=== PATIENT | female | born 1965 | race Caucasian/White ===

== ENCOUNTER 2018-03-19 16:29 | Outpatient (REF) | payer MEDICAID, SELFPAY ==
[2018-03-20 09:39] LABS: Anion Gap 9.2 mmol/L (3-11); BUN 23 mg/dL (7-18); CO2 27.8 mmol/L (21.0-32.0); CREATININE 1.33 mg/dL (0.55-1.02); Calcium 8.5 mg/dL (8.5-10.1); Chloride 104 mmol/L (98-107); Estimated GFR 41.42 (mL/min/1.73m2); Glucose 86 mg/dL (70-100); Potassium 4.5 mmol/L (3.5-5.1); Sodium 141 mmol/L (136-145)
[2018-03-20 09:48] LABS: Vitamin B12 > 2000 pg/mL (193-986)
== END 2018-03-19 16:49 ==
LOC: NCHCN 16:29
PROVIDERS: PCP Family Medicine; Visit Provider Family Medicine
DX: I10 Essential (primary) hypertension (principal); E53.8 Deficiency of other specified B group vitamins
CPT/HCPCS: 80048; 82607

== ENCOUNTER 2018-07-10 00:17 | Outpatient (CLI) | payer MEDICAID, SELFPAY ==
--- NOTE | 2018-07-10 10:28 | DI.MRI_ITS ---
SYMPTOM/DIAGNOSIS: CHRONIC NECK PAIN, M54.2 CERVICAL SPINE MRI: Routine noncontrast examination was performed. There are no priors for comparison. There is normal signal in the spinal cord. No evidence of tonsillar ectopia. At C 7-T 1, there is no focal disc herniation, central spinal canal or neural foraminal stenosis. At C 6-7, there is no central spinal canal stenosis or focal disc herniation. There are degenerative changes of the uncovertebral joints causing mild narrowing of the neural foramen bilaterally. At C 5-6, there is mild prominence of the osteophyte disc complex but no focal disc herniation or central spinal canal stenosis is seen. There are degenerative changes of the uncovertebral joints and facets causing mild bilateral neural foraminal narrowing. At C 4-5, there is prominence of the osteophyte disc complex causing mild narrowing of the central spinal canal. There is CSF seen surrounding the cord. There are degenerative changes of the uncovertebral joints causing mild to moderate bilateral neural foraminal stenosis. At C 3-4, there is no focal disc herniation or central spinal canal stenosis. No significant neural foraminal stenosis is seen. At C 2-3, there is no focal disc herniation, central spinal canal or neural foraminal stenosis. Degenerative endplate signal changes are seen in the bone marrow. Otherwise bone marrow signal is within normal limits. IMPRESSION: Multi level degenerative changes in the cervical spine resulting in central spinal canal and neural foraminal stenosis as described above.
== END 2018-07-10 00:37 ==
PROVIDERS: PCP Family Medicine; Visit Provider Family Medicine
DX: M54.2 Cervicalgia (principal); M50.30 Other cervical disc degeneration, unspecified cervical region; M48.02 Spinal stenosis, cervical region
CPT/HCPCS: 72141

== ENCOUNTER 2018-07-29 12:14 | Day surgery (SDC) | payer MEDICAID, SELFPAY ==
[2018-07-29 12:42] VITALS: BP 149/96; PULSE 86; RESP 16; TEMP 36.1; O2SAT 96
[2018-07-29] MEDS: Lidocaine 2% Pres-Free 5 ML VIAL (15:42)
--- NOTE | 2018-07-29 15:58 | W.PM.DSUDISC ---
Discharge Plan Disposition Patient Disposition: HOME Condition: Good Discharge Details Reason For Visit: TRIGGER LRF Attending Provider: Chandler Sanabria Primary Care Provider: Golden [facility] Meds and New Rx's Prescriptions: New ibuprofen 800 mg tablet 800 mg PO TID Qty: 15 RF: 0 Continued sumatriptan succinate [Imitrex] 25 MG tablet 25 mg PO PRN RF: 0 lisinopril 20 MG tablet 40 mg PO DAILY RF: 0 multivitamin 1 EACH tablet 1 ea PO RF: 0 hydrochlorothiazide 25 MG tablet 25 mg PO DAILY RF: 0 amlodipine 2.5 MG tablet 2.5 mg PO DAILY RF: 0 ergocalciferol (vitamin D2) [Vitamin D2] 50,000 UNITS capsule 50,000 units PO WEEKLY RF: 0 amitriptyline 10 mg Tablet RF: 0 Lyrica 100 mg Capsule BID RF: 0 Discharge Instructions Additional Instructions: Bend and straighten L ring finger 10 times/hour when awake to decrease pain and swelling. Remove dressings, shower or bathe and get incision wet after 48 hours. Leave incision uncovered when it is dry and sealed. Take ibuprofen as prescribed for 5 days. Follow up with in 2 weeks. Referrals: Chandler Sanabria MD [ [facility]] - (f/u in 2 weeks.) Activity:: Activity as Tolerated Remove Dressings/Wound Care:: 48 hours Shower/Bathe:: 48 hours Diet:: As Tolerated Discharge Orders Discharge Orders: Discharge Order (Routine); Ordered 07/29/18 Ordered By: Chandler Sanabria DS: Diagnosis Discharge Diagnosis (1) Trigger ring finger of left hand: Status: Acute
--- NOTE | 2018-07-29 17:32 | ROE_ITS ---
DATE OF PROCEDURE: July 29, 2018 PREOPERATIVE DIAGNOSIS: Trigger left ring finger. POSTOPERATIVE DIAGNOSIS: Same. PROCEDURE: Tendon sheath incision for trigger left ring finger. ANESTHESIA: Local infiltration with 1% Xylocaine solution and 0.5% Marcaine with an epinephrine solu tion. SURGEON: Chandler Sanabria M.D. INDICATIONS: This is a 53-year-old white female with a two month history of painful locking of her l eft ring finger. This has been interfering with her activities of daily living, as well as her work. She is now waking up in the morning with her finger stuck in flexion. It's very painful. Tendon s lore incision for trigger finger release was recommended to alleviate her pain and restore useful fl exion of her left ring finger. The risks and complications of the procedure were discussed with the patient in detail preoperatively. PROCEDURE: The patient was taken to the Operating Room on 07/29/18. She was placed supine on the ope rating table. The left hand was prepped and draped free in the usual sterile fashion. I infiltrated over the flexor sheath of the left ring finger with 1% Xylocaine solution. I make and incision para llel to the distal palmar flexion crease and 5 mm distal to where it centered over the flexor sheath of the left ring finger. The incision was about 2 cm in length. The incision was carried down to th e subcu. Blunt-tipped Littler scissors were then used to mobilize the soft tissues away from the fle xor sheath. Retractors were inserted. Under direct vision I incised the flexor sheath longitudinall y in the midline. I used Littler scissors to extend the incision of the proximal shellie proximally a nd distally until the entire proximal shellie is released. The patient was then asked to actively fle x and extend her left ring finger. She was able to flex and extend her left ring finger fully withou t any locking or catching. The wound was irrigated with saline solution. The wound margins were inf iltrated with 0.5% Marcaine with an epinephrine solution. The skin edges were approximated with thre e interrupted #4-0 Nylon sutures. The wound was dressed with Xeroform gauze, sterile gauze 4x4's and wrapped with a 2-inch Cling bandage for a light pressure dressing. The patient tolerated the proced ure well and was discharged to the Day Surgery Unit in good condition. The patient was discharged home from the Day Surgery Unit with instructions to bend and straighten he r left ring finger ten times an hour while awake to prevent swelling and pain. She will take ibuprof en 800 mg p.o. t.i.d. p.r.n. for pain. She is to keep the dressings intact for 48 hours. After 48 h ours she can remove her dressings, shower or bathe and get her incision wet. She can leave the incis ion uncovered when it is dry and sealed. She will follow-up with me in two weeks for suture removal.
== END 2018-07-29 16:21 | disposition home or self-care (01) ==
PROVIDERS: PCP Family Medicine; Visit Provider Orthopaedic Surgery
PROC: (CPT 26055; principal; 2018-07-29 13:30)
DX: M65.342 Trigger finger, left ring finger (principal)
CPT/HCPCS: 26055

== ENCOUNTER 2018-08-02 16:10 | Outpatient (REF) | payer MEDICAID, SELFPAY ==
[2018-08-02 21:09] LABS: Anion Gap 7.7 mmol/L (3-11); BUN 20 mg/dL (7-18); CO2 27.3 mmol/L (21.0-32.0); CREATININE 0.78 mg/dL (0.55-1.02); Calcium 8.7 mg/dL (8.5-10.1); Chloride 106 mmol/L (98-107); Glucose 104 mg/dL (70-100); Potassium 3.7 mmol/L (3.5-5.1); Sodium 141 mmol/L (136-145)
== END 2018-08-02 16:30 ==
LOC: NCHCN 16:10
PROVIDERS: PCP Family Medicine; Visit Provider Family Medicine
DX: N28.89 Other specified disorders of kidney and ureter (principal)
CPT/HCPCS: 80048

== ENCOUNTER 2018-08-22 00:19 | Outpatient (CLI) | payer MEDICAID, SELFPAY ==
--- NOTE | 2018-08-22 15:57 | DI.MAMMO_ITS ---
SYMPTOM/DIAGNOSIS: SCREENING, Z12.31, PREVENTATIVE HEALTH CARE, Z00.00, FAMILY H/O BREAST CA MAMMOGRAMS: Mammograms were interpreted according to the usual protocol including computer analysis with CAD system, tomosynthesis and C view imaging. The breasts are of moderate density with fairly symmetrical distribution of fibroglandular tissue. No dominant mass or clumped microcalcification is identified in either breast. No previous films available for comparison. CONCLUSION: No specific evidence of malignancy at this time. Routine screening examinations are suggested at yearly intervals due to the family history of breast carcinoma. Category 1. Breast density, Category B. MQSA ASSESSMENT OF FINDINGS: Negative. Category 1. Patient will receive a letter notifying them of these results. BI-RADS category B. There are scattered areas of fibroglandular density.
== END 2018-08-22 00:39 ==
PROVIDERS: PCP Family Medicine; Visit Provider Family Medicine
DX: Z12.31 Encounter for screening mammogram for malignant neoplasm of breast (principal); Z80.3 Family history of malignant neoplasm of breast
CPT/HCPCS: 77063; 77067

== ENCOUNTER 2019-03-03 15:50 | Outpatient (CLI) | payer SELFPAY ==
--- NOTE | 2019-03-03 15:50 | DI.RAD_ITS ---
EXAM: XR HIP LT COMPLETE AP PELVIS INDICATION: HIP PAIN LT, M25.552. COMPARISON: LEFT HIP COMPLETE from 08/10/2008 TECHNIQUE: 2D digital imaging was performed. FINDINGS: The bony structures are normally mineralized. The hip joint appears intact. There are minimal periart icular hypertrophic changes. Minimal DJD is demonstrated.
== END 2019-03-03 16:10 ==
PROVIDERS: PCP Family Medicine; Visit Provider Family Medicine
DX: M25.552 Pain in left hip (principal); M16.12 Unilateral primary osteoarthritis, left hip
CPT/HCPCS: 73502

== ENCOUNTER 2019-07-25 11:22 | Outpatient (CLI) | payer OTHER, SELFPAY ==
--- NOTE | 2019-07-25 11:15 | DI.RAD_ITS ---
EXAM: XR HIP LT AP LAT ONLY CLINICAL HISTORY: eval L hip pain. TECHNIQUE: 2D digital imaging was performed. COMPARISON: XR HIP LT COMPLETE AP PELVIS from 03/03/2019 FINDINGS: BONES: No acute fracture is present. No bony destructive lesion is seen. There is again seen a subcho ndral cyst in the superior acetabulum. JOINTS: No dislocation present. Left hip appears stable. SOFT TISSUE: Normal. IMPRESSION: Stable changes of the left hip. DATA REPOSITORY: RADIATION DOSE DELIVERED:
== END 2019-07-25 11:42 ==
PROVIDERS: PCP Family Medicine; Visit Provider Student in an Organized Health Care Education/Training Program
DX: M25.552 Pain in left hip (principal); M89.4 Other hypertrophic osteoarthropathy
CPT/HCPCS: 73502

== ENCOUNTER 2019-08-07 07:40 | Outpatient (CLI) | payer OTHER, SELFPAY ==
--- NOTE | 2019-08-07 08:15 | DI.MRI_ITS ---
EXAM: MR LOWER JOINT LT WO CLINICAL HISTORY: lt hip pain, m25.552. TECHNIQUE: Multiplanar multisequence MRI was performed. COMPARISON: No exams were available for comparison FINDINGS: Bones: In the articular surface of the left femoral head, there is decreased signal on the T1 and inc reased signal on the T2 weighted images. Similar marrow signal changes are noted in the articular antione face of the left acetabulum. Subchondral cysts are also seen in the superior acetabulum. No linear hy perintense signals are seen in the subcortical bone of the femoral head. Joint space: There is a moderate left joint effusion. There is hyperintense signal seen in the articu lar cartilage. Tendons: There is hyperintense signal on the T2 weighted images within the rectus femoris tendon, its insertion site at the anterior inferior left iliac spine. Hyperintense signal seen in the surroundin g soft tissues. The muscle shows normal signal and size. Ligaments: There is thickening and hyperintense signal seen in the distal left capsular ligament at i ts attachment to the greater trochanter. Soft tissues: No fluid collection or soft tissue mass is appreciated. Labrum: Grossly unremarkable on this noncontrast examination. IMPRESSION: 1. Abnormal signal seen within the marrow of the articular surfaces of the femoral head and acetabulu m. Subchondral cysts. Hyperintense signal in the articular cartilage. 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 Differential considerations include early AVN, inflammatory osteoarthritis ortiz ges, marrow edema syndrome, or transient osteoporosis of the hip. 2. Moderate joint effusion. 3. Hyperintense signal seen within the left rectus femoris tendon at its insertion site onto the ante rior inferior iliac spine. The finding is suspicious for tendon tear. 4. Thickening and hyperintense signal in the distal left capsular ligament. Tear or sprain cannot be excluded. DATA REPOSITORY:
== END 2019-08-07 08:00 ==
PROVIDERS: PCP Family Medicine; Visit Provider Student in an Organized Health Care Education/Training Program
DX: M25.552 Pain in left hip (principal); M25.452 Effusion, left hip; M16.12 Unilateral primary osteoarthritis, left hip; M62.89 Other specified disorders of muscle
CPT/HCPCS: 73721

== ENCOUNTER 2019-09-01 13:52 | Outpatient (CLI) | payer OTHER, MEDICAID, SELFPAY ==
--- NOTE | 2019-09-01 13:45 | DI.RAD_ITS ---
EXAM: XR PELVIS AP CLINICAL HISTORY: preoperative planning; left MARIEL TECHNIQUE: 2D digital imaging was performed. COMPARISON: XR HIP LT COMPLETE AP PELVIS from 03/03/2019 XR HIP LT AP LAT ONLY from 07/25/2019 FINDINGS: There is moderate narrowing of the superior left hip joint space. This appears increased when compar ed with the previous exam which could be secondary to weight-bearing. A subchondral cyst is again no pablo in the superior acetabulum which appears unchanged. The right hip joint space is well maintained .. IMPRESSION: Increase in superior joint space narrowing the left hip.
== END 2019-09-01 14:12 ==
PROVIDERS: PCP Family Medicine; Visit Provider Physician Assistant
DX: M25.552 Pain in left hip (principal); M16.12 Unilateral primary osteoarthritis, left hip; M85.68 Other cyst of bone, other site
CPT/HCPCS: 72170

== ENCOUNTER → 2019-09-10 03:45 | Outpatient (CLI) | payer OTHER, MEDICAID, SELFPAY ==
[2019-09-10 09:43] LABS: HCT 43.3 % (36.0-46.0); HGB 13.9 g/dL (12.0-15.5); Mean Corp. HGB Concentration 32.1 g/dL (32.0-36.0); Mean Corpuscular Hemoglobin 28.5 pg (27.0-33.0); Mean Corpuscular Volume 88.9 fL (80-95); Mean Platelet Volume 9.2 fL (8.0-11.0); Platelet Count 364 x1000/uL (130-400); RBC 4.87 m/cumm (4.00-5.20); RBC Distribution Width 14.4 % (11.7-14.6); White Blood Cell Count 5.77 k/cumm (4.4-10.8)
[2019-09-10 10:53] LABS: Anion Gap 5.6 mmol/L (3-11); BUN 14 mg/dL (7-18); CO2 31.4 mmol/L (21.0-32.0); CREATININE 0.66 mg/dL (0.55-1.02); Calcium 9.2 mg/dL (8.5-10.1); Chloride 100 mmol/L (98-107); Glucose 74 mg/dL (74-106); Sodium 137 mmol/L (136-145)
[2019-09-11 18:51] LABS: COVID-19 RT-PCR UVMMC Result Negative (Negative)
== END ==
PROVIDERS: PCP Family Medicine; Visit Provider Student in an Organized Health Care Education/Training Program
DX: M25.552 Pain in left hip (principal); M87.852 Other osteonecrosis, left femur; Z11.59 Encounter for screening for other viral diseases; Z01.818 Encounter for other preprocedural examination; Z01.812 Encounter for preprocedural laboratory examination
CPT/HCPCS: 36415; 80048; 85027; 86850; 86900; 86901; U0003

== ENCOUNTER 2019-09-16 06:13 | Observation (INO) | payer MEDICAID, SELFPAY ==
[2019-09-16] VITALS (11 sets, daily range): BP systolic 73–138; BP diastolic 35–104; PULSE 52–77; RESP 15–20; TEMP 35.1–36.7; O2SAT 95–100
--- NOTE | 2019-09-16 06:45 | DI.RAD_ITS ---
EXAM: XR HIP LT IN OR CLINICAL HISTORY: Osteonecrosis of left hip, left hip pain. TECHNIQUE: 2D and realtime digital imaging was performed. Fluoro time: 35.2 sec, 5.11 mGy COMPARISON: XR PELVIS AP from 09/01/2019 FINDINGS: Fluoroscopy was provided in the OR. Hard copy images show placement of a left total hip prosthesis. The alignment appears satisfactory. RADIATION DOSE DELIVERED:
[2019-09-16] MEDS: Celecoxib 200 MG CAP 400 MG PO (06:48)
[2019-09-16] MEDS: Acetaminophen 500 MG TAB 1000 MG PO ×3 (06:49→19:37)
[2019-09-16] MEDS: Lactated Ringers 1,000 ML 80 ML IV ×3 (07:19→13:09)
[2019-09-16] MEDS: ceFAZolin 2 GM/50 ML BAG IVPB (08:22)
[2019-09-16] MEDS: Ketorolac 30 MG/ML VIAL (10:00)
[2019-09-16] MEDS: Bupivacaine 0.25% Pres-Free 30 ML VIAL (10:01)
--- NOTE | 2019-09-16 10:35 | W.PM.OP ---
Date of service: 09/16/19 Time of Service: 10:35 Operative Note Operative Note DATE OF PROCEDURE: 09/16/19 PRE-OP DIAGNOSIS: Left Hip osteonecrosis POST-OP DIAGNOSIS: same PROCEDURE: Left Anterior Total Hip Arthroplasty SURGEON: Keith Verma [employer] TEAM MEMBER: nAa Pineda ANESTHESIA: GETA ESTIMATED BLOOD LOSS: 450 PATHOLOGY: none sent COMPLICATIONS: None Patient was transported to: PACU Patient's condition: stable Implants: 1. Depuy [place] Acetabular Component, 54 mm 2. Depuy Acetabular Liner, 54 x 36 mm 3. Depuy Corail [Standard Collared] Femoral Stem, Size 14 4. Depuy [Altrx Ceramic Femoral Head], Size 36+5 mm Indications: I have seen Socorro in clinic for symptoms of hip osteonecrosis, confirmed with radiographic findings. Socorro has exhausted nonoperative methods and was having significant limitations in daily function and desired better function and less pain. I discussed the technical details of a hip replacement. I explained the risks of the procedure to include, but not limited to, bleeding, infection, pain, stiffness, fracture, damage to nerves and vessels, damage to muscles and tendons, loosening, instability, leg length inequality, need for repeat procedure, blood clot and cardiopulmonary demise. Despite these risks, [NAME] elected to proceed. Findings: There was a large osteonecrotic region of the superior femoral head which was easily penetrated with a freer edge. The overlying cartilage was mobile. Procedure Description: Socorro was greeted in the preoperative holding area where the correct side was identified and marked. The consent was reviewed with the patient and signed. The history and physical was updated. All questions were answered. She was taken back to the operating room. A spinal anesthestic was then administered. The patient was placed into the supine position on the operating room table. The patient was then positioned onto the ARCH table. Both feet were wrapped with [place] cotton wrap along with Coban. The feet were placed in specialized boots for the ARCH table, well seated within the boot and secured. SCDs were applied. The patient was then slid down onto a peroneal post and the nonoperative leg was secured in a leg randolph attached to the table. The operative side was placed into the ARCH table attachment and bed height and positioning was secured. At this time, Vivian reported still having some sensation in the legs. A test of pain and temperature was performed which demonstrated an area over the anterior hip which was still sensate. Therefore, she was converted to a general anesthetic. A preoperative AP pelvis was obtained to serve as a reference for determining leg lengths. Prophylactic antibiotics in the form of cefazolin were administered. 1g of Tranxemic Acid was given intravenously within 30 minutes of incision. The left leg was then prepped with Chloraprep and draped in a standard fashion. A second prep was performed prior to placing the final shower-curtain type drape with Iodine impregnated skin protection. A timeout to confirm correct identity, side and site, procedure, allergies, anesthesia, and medical concerns was performed. An obliquely oriented incision was made starting lateral to the ASIS and running distal over the Tensor Fascia Betty (TFL) muscle belly toward the fibular head, approximately 10cm. The skin and soft tissue was dissected sharply, through Ousmane?s fascia, and to the fascia of the TFL. With the fascia and superior border of the IT band identified, the fascia was incised with a new knife just above any perforators from the IT band. The TFL muscle belly was bluntly dissected away from the fascia and moved laterally. The fat between TFL and rectus was identified to ensure the dissection was not within the TFL. Blunt dissection created space between abductors and the capsule and retractor was placed over the lateral femoral neck. The fibers of the rectus femoris tendon were identified and these were freed from the anterior capsule. A second cobra retractor was placed around the medial femoral neck. The TFL was further retracted laterally to show the deep fascia. Careful dissection through this layer identified three main crossing vessels of the lateral femoral circumflex. These were cauterized in multiple locations and then cut without any noticeable bleeding. The TFL was further released bluntly from the deep fascia to expose anterior hip capsule and fat The Gio orthopaedic retractor was then placed beneath the TFL and against sartorius and medial soft tissues to protect and retract the soft tissues. A T-capsulotomy was then performed starting at the superior lateral acetabulum and moving distally to the intertrochanteric ridge. These capsular flaps were tagged with a No. 1 Ethibond and elevated from within. The capsular flaps were released to the shoulder of the lateral neck and to the lesser trochanter to give excellent visualization of the proximal femur. A neck osteotomy was performed using an oscillating saw based on preoperative templates. This cut started in the shoulder and of the lateral neck and exited medially. The saw was at all times directed medially to avoid injury to the greater trochanter. 6cm of traction was applied to the leg and the osteotomy opened. The femoral head was removed with a corkscrew, making sure to protect the TFL on its exit. This was measured on the back table to determing the starting reamer size. There is a large osteonecrotic region of the superior aspect of the femoral head which was easily penetrable with a [place] elevator and had overlying cartilage which was mobile. Portions of the rectus obscuring visualization were minimally elevated off the superior acetabulum. An anterior retractor was placed over the anterior wall between capsule and labrum and held with the Gripper retraction system. A posterior retractor was placed similarly. This provided excellent visualization. The contents of the cotyloid fossa were removed with electrocautery and the labrum was removed with a knife. Acetabular reaming began with a 50 mm reamer. This first reaming was directed anterior to posterior and medial to get down to the true floor. This was inspected and reamed until the true floor was reached. I then reamed sequentially up to a 53 mm reamer where good fit was obtained. The larger reamers were oriented based on anatomical reference of the anterior and lateral steiner to ensure proper abduction and anteversion. Positioning and size was confirmed with the fluoroscopy. A 54 mm Depuy [place] acetabular component was selected. The acetabulum was reamed around the periphery with the selected acetabular size to prevent a rim fit. The deep tissues were irrigated. The acetabular component was then impacted in a position of about 40-45 degrees of abduction and 15-20 degrees of anteversion, using the patient?s anatomy as the ultimate landmark. Fluoroscopy was used to confirm this. There was excellent chief clinical officer of the acetabular component and the inserting handle was removed. A primary acetabular screw was placed into the ilium by drilling through one of the holes in the acetabular component. This was measured and an approrpriately sized screw was placed with excellent purchase. It was checked not to be proud. A second screw was placed in a similar fashion. The acetabular liner, Depuy 54 x 36 mm polyethylene liner, was inserted and lined up with the tines of the acetabular component. There was no soft tissue interposition. The liner was then impacted into position and confirmed to be well-seated. A portion of the [place]-articular cocktail was then injected around the acetabulum into the capsule and periosteum. This cocktail consisted of 50cc of 0.25% Bupivicaine and 20cc of Exparel, expanded to a total of 120cc. Traction was released from the femur. The leg was rotated to 120 degrees. Any remaining medial capsule was released until the lesser trochanter was easily palpable. A Bowden retractor was placed medially. The lateral capsule was further released into the shoulder to allow access to the greater trochanter. A Bowden retractor was placed over the greater trochanter which allowed the trochanter to flip in front of the capsule for excellent exposure. The leg was brought down into maximal extension and 20 degrees of adduction while ensuring there was no impingement on the acetabulum. Any remnant capsule within the trochanter was released. Piriformis and obturator externis were identified and protected. There was excellent access to the proximal femur. The lateral neck remnant was removed with a rongeur. A blunt canal probe was used to identify the canal and trajectory for later broaching. A box osteotome initiated the broach course. A small curved rasp and a curved curette were used to work laterally. Broaching then began with a size 8 Corail broach. This was inserted manually around the trochanter and into the canal before mallet blows. The broach was seated to a few millimeters below the cut level based on the neck cut and the preoperative template. Sequential broaching was continued with the QuickM[employer] pneumatic broaching device until a tight fit was obtained with good rotational control of the femur. A trial standard neck was inserted along with a +1.5 trial head. The leg was brought out of extension and adduction and then reduced with traction and internal rotation. The leg was stable anteriorly in a position of 30 degrees of extension and 90 degrees of external rotation. Fluoroscopy was used to ensure there was no fracture and the stem was seated well. Leg lengths were checked with an AP pelvis and pelvic reference points utilizing the joint point navigation system. This showed that we were 2 mm shorter and less on offset, so I decided to go up to a +5 head. Once content with the desired offset and leg lengths, the leg was brought back into extension, external rotation and adduction. The periosteum and surrounding tissue was injected with remaining portion of the [place]ina-articular cocktail. The proximal femur was irrigated as well as the deep tissues. The Depuy Corail standard collared stem, size 14, was then manually inserted into the proximal femur making sure to control rotation. It was then malleted into position with light blows, giving breaks to allow bone expansion and decrease risk of fracture. The selected Depuy Altrx Ceramic Head, size 36+5 mm, was then placed onto the clean and dry trunnion and secured with impaction onto the tapered fit. The leg was brought back out of extension and adduction and reduced with traction and internal rotation. Stability was confirmed with no shuck at 90 degrees of external rotation and 30 degrees of extension. No impingement through range of motion arc. Final x-ray images were obtained with fluoroscopy to confirm adequate positioning and no intraoperative fracture. The deep tissues were thoroughly irrigated with Irrisept chlorhexadine solution. The second dose of TXA 1g was administered intravenously. The capsule was then reapproximated with the previously placed Ethibond sutures. The TFL fascia was finally closed with a No. 2 Stratafix, barbed suture. Deep tissues were then reapproximated with 0 Vicryl and a running 2-0 Vicryl. The skin was closed with a running 4-0 Monocryl in a subcuticular fashion. This was reinforced with skin glue. A Mepilex silver dressing was applied. At the end of the case, all counts were correct. Socorro was transferred to the hospital bed without difficulty and suffering no apparent complication. Socorro has a good prognosis. Physical therapy will start today and without restrictions, weight-bearing as tolerated. Aspirin 81mg BID will be used for DVT prophylaxis.
--- NOTE | 2019-09-16 12:24 | NUR.NOTE ---
Nursing Note: 1202: pt arrives to room 225 via stretcher from PACU. pt alert/oriented but sleepy. pt has patent IV with LR, patent gallardo draining clear yellow urine. VS WNL for pt at this time per PACU. pt pain is 4/10 at this time. ice pack to Left hip area, mepilex dressing intact. pt has +pp's and good movement in toes bilaterally. pt has TEDS and SCDs in place. pt hr is regular but diana, LS clear anteriorly, + bowel sounds at this time. pt oriented to call greene system. natasha at the bedside. continue to monitor.
[2019-09-16] MEDS: HYDROmorphone 2 MG/ML VIAL 0.5 MG IVP (13:08)
--- NOTE | 2019-09-16 14:28 | PT.INIE ---
Date of service: 09/16/19 Time of Service: 15:00 PT Notes Inpatient Physical Therapy Evaluation Date: September 16, 2019 Referring Doctor: Keith Verma PT Orders: PT CONSULT: s/p L MARIEL Precautions: Standard, WBAT L LE Patient Profile/Admitting Diagnosis: Socorro is a 54 year old female s/p Left MARIEL due to multiple month history of debilitating pain. PMHX: Arthritis of left shoulder region (Chronic) Carpal tunnel syndrome, left (Acute) DDD (degenerative disc disease), cervical (Chronic) Depression, major, single episode, severe (Acute) Fatigue (Acute) Fibromyalgia (Chronic) GERD (gastroesophageal reflux disease) HTN (hypertension) Hx of bariatric surgery Migraine (Chronic) Obesity Osteoarthritis of knees, bilateral (Chronic) Peripheral neuropathy (Chronic) Pernicious anemia (Acute) Pruritus (Acute) Renal insufficiency (Chronic) Restless legs (Acute) Sacroiliac joint pain (Acute) Seborrheic dermatitis of scalp (Chronic) Trigger finger, left ring finger (Acute) Vitamin B 12 deficiency (Chronic) Vitamin D deficiency (Acute) Surgical History Colonoscopy - MAC (06/29/17) H/O shoulder surgery (Chronic) Left History of cholecystectomy (Chronic) History of knee replacement (Chronic) Hx laparoscopic cholecystectomy (Acute) Hx of BSO (bilateral salpingo-oophorectomy) (Acute) S/P ABEBE (total abdominal hysterectomy) (Acute) Social History/Home Situation: Socorro lives with her boyfriend in a 2 story home. She notes that she does have a recliner that she can sleep in if needed on the first floor until she feels confident with the stairs. She notes that her shower is also on the second story however does have a bathroom on the first floor. She is worried about the low toilet seats and does not want to fall. She has utilized a walker in the past due to previous knee surgery. She was most previously employed via [employer] however gave her notice due to her hip pain. Her last day of work was the 31 of August. Current Functional Limitations: WBAT L LE Equipment Owned/DME: None Subjective: Socorro notes that she is getting more sensation back into her legs, her bottom still feels a little funny. She notes that her pain is a 5/10. She was recently given pain medication via nursing. She is hopeful to go home in the morning however does not quite feel ready tonight. Objective: General Observation: IV L UE, Fabian catheter Mental Status: Alert and oriented x4 Pain: 5/10 L hip Vital Signs: BP 125/81 mmHg; HR 63 bpm ROM: Right Upper Extremity: Demonstrates full active Right UE ROM Left Upper Extremity: Demonstrates full active Left UE ROM Right Lower Extremity: Demonstrates WNL right LE ROM Left Lower Extremity: Hip flexion tolerable to 90 degrees, abduction 30 degrees, knee flexion/extension WNL, ankle DF/PF WNL Strength: Right Upper Extremity: Demonstrates 5/5 Right UE strength Left Upper Extremity: Demonstrates 5/5 Left UE strength Right Lower Extremity: Demonstrates 5/5 right LE strength Left Lower Extremity: Unable to lift her left leg I with SLR. Knee flexion 4/5 with pain, knee extension 4/5 with pain, DF/PF 4-/5 Sensation: Intact light touch bilateral LE. Bed Mobility/Transfers: Supine-sit: HOB 30 degrees, Supervision Sit-supine: HOB flat, min A of LE's Sit-stand: Supervision with FWW Stand-sit: Supervision Bed-Bed: Supervision with FWW Gait: FWW, WBAT L LE, 25 ft CGA with complaints of light headedness and left hip pain. Patient notes that she does not feel that she is putting her full weight down on the Left at this time. Balance: Static Sitting: Normal Dynamic Sitting: Normal Static Standing: Good Dynamic Standing: Fair Special Tests: Mobility Limitations Standardized Measure [facility] AM-PAC 6 clicks Basic Mobility Inpatient Short Form: Raw Score: 19 CMS Score: 41.77 % Informed Consent/Education: Patient instructed in purpose of PT consult and plan of care. Assessment: Patient is a 54 year old female referred to physical therapy services with the diagnosis of s/p left MARIEL. Patient presents with clinical signs and symptoms consistent with diagnosis. Presents with impaired joint mobility of the left hip, impaired muscle performance and motor function s/p left MARIEL. Required CGA with ambulation and use of FWW. Anticipate discharge home tomorrow morning. Will see patient first thing in AM to promote functional mobility, stair negotiation, and all transfers to ensure safety home. Patient is assessed as a Low 66768 complexity based on the following: History: As above Examination: As above Presentation: Stable Decision Making: Low Goals: Goals X1 week 1. Supine-Sit I 2. Sit-Supine I 3. Sit-Stand I 4. Stand-Sit I 5. Bed-Chair I, FWW 6. Chair-Bed I, FWW 7. Gait I, FWW 100ft or greater 8. Stairs ascend/descend 5 steps with use of railing, I 9. Independent with home exercise program I 10. Demonstrate improved dynamic standing balance to good Plan of Care/Treatment Plan: 1-2x/day, 7 days/week x 1 week. Plan of care has been reviewed with the STAFF NUCLEAR MEDICINE TECHNOLOGIST providing the service under Physical Therapy direction. Initiate Physical Therapy intervention for strengthening, bed mobility, transfers, gait, stairs, balance training, use of assistive device. DISCHARGE RECOMMENDATIONS: Home with use of FWW per MD order TREATMENT CODE/TIME: 22117, 30 minutes, 15:00 PM DIVINA Herrera [facility]
--- NOTE | 2019-09-16 14:45 | W.PM.DS.N ---
Date of service: 09/17/19 Time of Service: 07:28 DS: Diagnosis Discharge Diagnosis (1) Osteonecrosis of left hip: Status: Acute Discharge Plan Disposition Patient Disposition: HOME Condition: Good Discharge Details Reason For Visit: L Anterior MARIEL Admit Date/Time: 09/16/19 06:13 Admit Provider: Keith Verma Attending Provider: Keith Verma [facility] Hospital Course: Patient was admitted to the medical/surgical floor following the procedure. It was tolerated well without any notable medical, surgical, or anesthetic complications. Mobilization began postoperatively. The gallardo catheter was removed and voiding spontaneously. Vitals were stable. Physical therapy worked with the patient and was cleared for discharge home. No acute medical issues. Home Meds and New Rx's Prescriptions: New celecoxib 200 mg capsule 200 mg PO BID PRN (Reason: pain) Qty: 60 RF: 1 aspirin 81 mg tablet,delayed release (DR/EC) 81 mg PO BID Qty: 60 RF: 0 acetaminophen 500 mg tablet 1,000 mg PO Q8H PRN (Reason: pain) Qty: 90 RF: 3 hydromorphone 2 mg tablet 2 mg PO Q4H PRN (Reason: pain) Qty: 18 RF: 0 Continued amitriptyline 25 mg tablet 25 mg PO QHS RF: 0 cyanocobalamin (vitamin B-12) 1,000 mcg/mL kit 1,000 mcg IM QMONTH RF: 0 chlorthalidone 25 mg tablet 25 mg PO DAILY RF: 0 cyclobenzaprine 10 mg tablet 10 mg PO HS RF: 0 amlodipine 10 mg tablet 10 mg PO DAILY RF: 0 Zyrtec 10 mg capsule 10 mg PO DAILY PRNRF: 0 citalopram 40 mg tablet 40 mg PO DAILY RF: 0 cholecalciferol (vitamin D3) 1,000 unit capsule 1,000 unit PO DAILY RF: 0 sumatriptan succinate [Imitrex] 25 MG tablet 25 mg PO PRN RF: 0 lisinopril 20 MG tablet 40 mg PO DAILY RF: 0 multivitamin 1 EACH tablet 1 ea PO RF: 0 omeprazole 20 mg capsule,delayed release(DR/EC) 20 mg PO DAILY Qty: 30 RF: 3 hydrochlorothiazide 25 MG tablet 25 mg PO DAILY RF: 0 Discontinued prednisone 5 mg tablet 5 mg PO DAILY Qty: 30 RF: 0 tramadol 50 mg tablet 50 mg PO Q8H PRN (Reason: pain) Qty: 21 RF: 0 ibuprofen 600 mg tablet 600 mg PO Q8H PRN (Reason: pain) Qty: 90 RF: 0 Discharge Instructions Additional Instructions: Dr. Verma?s Total Hip Discharge Instructions Activity: The most important activity is to walk. You should try to take short walks a few times a day. You have no restrictions on movement or positioning, but do not try to force what you do. You will find some stiffness and weakness with hip flexion (lifting your knee). Do not try to strengthen this too early, continue to practice walking and stairs and this will come. - Outpatient physical therapy can be helpful to help return you to a normal gait and improve your flexibility and strength. This can start around 2 weeks. For some patients, it?s not necessary. Usually this is determined at the time of discharge or at the first post-operative visit. - You should wear the JAMMIE hose on both legs for 2 weeks. Dressing: Keep the surgical dressing in place for at least one week. After the first week it may be removed and replace with light gauze and tape or nothing. It may get wet after 3 days but avoid soaking the dressing. If it gets wet, just lightly pat dry. It is important to always keep some gauze between skin folds, especially when you are sitting. Spend some time with the wound exposed when you are lying flat as the incision does wrinkle onto itself. Medications: - You should take Tylenol and an anti-inflammatory Celebrex as your primary pain control medications - You have been prescribed a stronger pain medication Oxycodone for breakthrough pain, take as needed as prescribed. - You should continue to take your stomach acid reduction agent Omeprazole to help reduce stomach acid and reflux. - You will be taking Aspirin 81mg twice a day for DVT prevention unless instructed otherwise. - If you have constipation you should take Colace or Miralax (both [id number]). It takes most people 3-4 days to have a bowel movement. Follow-up: 2 weeks Referrals: Keith Verma MD [ [facility] STAFF PHYSICIAN] - Activity:: Activity as Tolerated Equipment/Supplies:: Walker Diet:: As Tolerated Discharge Orders Discharge Orders: Discharge Order (Routine); Ordered 09/17/19 Ordered By: Keith Verma DS: Summary Status at Discharge Functional status at discharge: uses cane/walker Overall status at discharge: patient is progressing back to baseline Mental Status: mental status grossly normal Speech and Movement: speech and movement normal Mood: congruent mood Affect: normal affect Exam Narrative Exam Narrative: Left hip dressing is clean dry and intact. Minimal ecchymosis. Tenderness over the greater trochanter and the posterior soft tissues and musculature of the hip. Excellent range of motion with about 30 degrees of internal rotation and 45 degrees of external rotation with no pain. She is able demonstrate active hip flexion. Sensation intact light touch of the femoral nerve and sciatic nerve distributions. The foot is warm and well-perfused. Psych Mental Status: mental status grossly normal Speech and Movement: speech and movement normal Mood: congruent mood Affect: normal affect DS: Data Vitals/I&O Vitals and I&O: Vital Signs Temperature 35.1 C L 09/16/19 12:10 Temperature Source Temporal Artery Scan 09/16/19 12:10 Pulse 65 09/16/19 12:10 Pulse Rhythm Regular 09/16/19 06:32 Respiratory Rate 18 09/16/19 12:10 Respiratory Effort Non-Labored 09/16/19 06:32 Respiratory Depth Normal 09/16/19 06:32 Respiratory Pattern Normal 09/16/19 06:32 Blood Pressure 126/84 09/16/19 12:10 Pulse Oximetry 99 09/16/19 12:10 Respiratory End-tidal CO2 36 09/16/19 11:40 Oxygen Delivery Method Room Air 09/16/19 12:10 Oxygen Flow Rate 0 09/16/19 12:10 Pain Level 4 09/16/19 14:08 Intake & Output 09/15/19 09/16/19 09/16/19 23:59 11:59 23:59 Intake Total 1753.333 / 2104.000 350.667 / 2104.000 Output Total 750 / 750 Balance 1003.333 / 1354.000 350.667 / 1354.000 Weight 95.5 kg Intake: IV 1753.333 / 1864.000 110.667 / 1864.000 Oral 240 / 240 Output: Urine 300 / 300 Estimated Blood Loss 450 / 450 Other: Urine Color Yellow Urine Appearance Clear Emesis Description None [facility] Medical History Arthritis of left shoulder region (Chronic) Carpal tunnel syndrome, left (Acute) DDD (degenerative disc disease), cervical (Chronic) Depression, major, single episode, severe (Acute) Fatigue (Acute) Fibromyalgia (Chronic) GERD (gastroesophageal reflux disease) HTN (hypertension) Migraine (Chronic) Obesity Osteoarthritis of knees, bilateral (Chronic) Peripheral neuropathy (Chronic) Pernicious anemia (Acute) Pruritus (Acute) Renal insufficiency (Chronic) Restless legs (Acute) Sacroiliac joint pain (Acute) Seborrheic dermatitis of scalp (Chronic) Trigger finger, left ring finger (Acute) Vitamin B 12 deficiency (Chronic) Vitamin D deficiency (Acute) Surgical History Colonoscopy - MAC (06/29/17) H/O shoulder surgery (Chronic) Left History of (Chronic) History of knee replacement (Chronic) Left and revision ~2004 Right - early History of right knee joint replacement (Acute) Hx laparoscopic cholecystectomy (Acute) Hx of bariatric surgery (~1998) States injury to spleen required drain Hx of BSO (bilateral salpingo-oophorectomy) (Acute) S/P ABEBE (total abdominal hysterectomy) (Acute) Family History Grandfather Colon cancer Social History Smoking/Tobacco Use Status: Never 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 Drug use: Never
[2019-09-16] MEDS: ceFAZolin 1 GM/50 ML BAG IVPB ×2 (14:51→21:32)
[2019-09-16] MEDS: HYDROmorphone 2 MG TAB PO (14:51)
[2019-09-16] MEDS: Celecoxib 200 MG CAP PO (19:38)
[2019-09-16] MEDS: Aspirin E.C. 81 MG TABEC PO (19:38)
[2019-09-16] MEDS: Amitriptyline 25 MG TAB PO (21:32)
[2019-09-16] MEDS: Cyclobenzaprine 10 MG TAB PO (21:32)
[2019-09-17 00:03] VITALS: BP 144/91; PULSE 69; RESP 20; TEMP 36.6; O2SAT 98
[2019-09-17] MEDS: HYDROmorphone 2 MG TAB PO ×3 (00:32→08:37)
[2019-09-17] MEDS: Lactated Ringers 1,000 ML 80 ML IV (03:45)
[2019-09-17 03:58] VITALS: BP 117/78; PULSE 74; RESP 20; TEMP 36.5; O2SAT 97
[2019-09-17] MEDS: ceFAZolin 1 GM/50 ML BAG IVPB (05:57)
[2019-09-17 07:07] VITALS: BP 131/85; PULSE 70; RESP 17; TEMP 36.9; O2SAT 96
--- NOTE | 2019-09-17 08:01 | INDS_ITS ---
Date of service: 09/17/19 Time of Service: 08:02 PT Notes Visit Reasons: L Anterior MARIEL Inpatient Physical Therapy Discharge Summary Dates: September 17, 2019 Dates of Service: September-September 17, 2019 SUBJECTIVE: Socorro reports that she did not sleep the best. She notes that she wa s up walking with nursing throughout the night. Dr Verma was already in and she will be discharged later this morning. OBJECTIVE: Observation: IV left UE Pain: 5/10 left hip ROM: L UE: WNL R UE: WNL L LE: Hip flexion 95 degrees, abduction 30 degrees. Knee and ankle ROM WNL R LE: WNL STRENGTH: L UE: 5/5 R UE: 5/5 L LE: Independent SLR, knee extension 4/5, knee flexion 4/5, DF/PF 5/5 R LE: 5/5 BED MOBILITY/TRANSFERS: Supine-sit Independent Sit-supine Independent Sit-stand Independent Stand-sit Independent Bed-Chair Independent with FWW Chair-bed Independent with FWW GAIT: FWW, WBAT L LE, 200 ft, Independent with PT assisting with IV pole. Stairs: up/down 5 stairs with use of bilateral railings without difficulty, one step at a time, no cueing needed for proper technique. BALANCE: Static sitting: Normal Dynamic sitting: Normal Static standing: Normal Dynamic standing Good ASSESSMENT: Socorro is a 54 year old female s/p L MARIEL presenting with improved functional mobility and transfers. Independent with use FWW. Able to negotiate stairs without difficulty with use of bilateral railing. GOALS Goals X1 week 1. Supine-Sit I (MET) 2. Sit-Supine I (MET) 3. Sit-Stand I (MET) 4. Stand-Sit I (MET) 5. Bed-Chair I, FWW (MET) 6. Chair-Bed I, FWW (MET) 7. Gait I, FWW 100ft or greater (MET) 8. Stairs ascend/descend 5 steps with use of railing, I (MET) 9. Independent with home exercise program I (MET) 10. Demonstrate improved dynamic standing balance to good (MET) DISCHARGE PLAN/RECOMMENDATIONS: Patient to be discharged home per MD order. She will continue with HEP promoting left hip ROM and strength within tolerance. Promoting gait and functional mobility with use of FWW.Patient is in need of walker at this time for home usage. Patient to be discharged from inpatient PT services at this time. Follow up with outpatient PT if necessary per MD order. Thank you for this referral. [id number] 25 minutes 7:35 AM
[2019-09-17] MEDS: amLODIPine 10 MG TAB PO (08:36)
[2019-09-17] MEDS: hydroCHLOROthiazide 25 MG TAB PO (08:36)
[2019-09-17] MEDS: Citalopram 20 MG TAB 40 MG PO (08:36)
[2019-09-17] MEDS: Acetaminophen 500 MG TAB 1000 MG PO (08:36)
[2019-09-17] MEDS: Celecoxib 200 MG CAP PO (08:36)
[2019-09-17] MEDS: Aspirin E.C. 81 MG TABEC PO (08:37)
[2019-09-17] MEDS: Omeprazole 20 MG CAPCR PO (08:37)
[2019-09-17] MEDS: Lisinopril 20 MG TAB 40 MG PO (08:37)
--- NOTE | 2019-09-17 09:49 | PDOC.CMPRO ---
Care Management Progress Note Socorro is sitting up in the chair, prepared for discharge my ride is outside, when CM meets with her. She is pleasant in interaction and reports being very pleased with her quality of care. CM provided FWW, which OT was adjusting to Socorro. CM reviewed contact info if needed post discharge.
== END 2019-09-17 09:05 | disposition home or self-care (01) ==
LOC: MS 11:46 → PDS 11:46
PROVIDERS: Admitting Provider Student in an Organized Health Care Education/Training Program; PCP Family Medicine; Visit Provider Student in an Organized Health Care Education/Training Program
PROC: 0SRB04A Replacement of Left Hip Joint with Ceramic on Polyethylene Synthetic Substitute, Uncemented, Open Approach (ICD-10-PCS; CPT 27130; principal; 2019-09-16 08:15)
DX: M87.852 Other osteonecrosis, left femur (principal); M25.552 Pain in left hip; Z98.84 Bariatric surgery status; M85.68 Other cyst of bone, other site; I10 Essential (primary) hypertension; K21.9 Gastro-esophageal reflux disease without esophagitis; Z96.642 Presence of left artificial hip joint
CPT/HCPCS: 27130; C1776; 76000; 97161; 97530; NC; 73501; G0378; J0690; J1885; J2001; J2250; J2370; J2405; J2704

== ENCOUNTER 2019-10-02 11:57 | Outpatient (CLI) | payer MEDICAID, SELFPAY ==
--- NOTE | 2019-10-02 10:30 | DI.RAD_ITS ---
EXAM: XR HIP LT COMPLETE AP PELVIS CLINICAL HISTORY: f/u L MARIEL. TECHNIQUE: 2D digital imaging was performed. COMPARISON: CR XR HIP LT COMPLETE AP PELVIS from 03/03/2019 XR HIP LT IN OR from 09/16/2019 FINDINGS: BONES: No acute fracture is present. No bony destructive lesion is seen. There are stable postsurgica l changes of a left total hip replacement. JOINTS: No dislocation present. SOFT TISSUE: Normal. IMPRESSION: Stable left TKR. DATA REPOSITORY: RADIATION DOSE DELIVERED:
== END 2019-10-02 12:17 ==
PROVIDERS: PCP Family Medicine; Referring Provider Family Medicine; Visit Provider Student in an Organized Health Care Education/Training Program
DX: Z96.642 Presence of left artificial hip joint (principal); Z47.1 Aftercare following joint replacement surgery
CPT/HCPCS: 73502

== ENCOUNTER 2020-04-12 11:43 | Outpatient (REF) | payer MEDICAID, SELFPAY ==
[2020-04-13 23:05] LABS: Patient Race White; SARS-CoV-2 RNA Undetected (Undetected); SARS-CoV-2 Specimen Source Nasal
== END 2020-04-12 12:03 ==
LOC: NCHCN 11:43
PROVIDERS: PCP Family Medicine; Visit Provider Family Medicine
DX: J02.9 Acute pharyngitis, unspecified (principal)
CPT/HCPCS: U0003

== ENCOUNTER 2020-04-23 10:04 | Outpatient (CLI) | payer MEDICAID, SELFPAY ==
--- NOTE | 2020-04-23 13:17 | DI.RAD_ITS ---
EXAM: XR SHOULDER RT COMPLETE 2+V CLINICAL HISTORY: RT SHOULDER PAIN, M25.511, S/P FALL ON 04/19. TECHNIQUE: 2D digital imaging was performed. COMPARISON: No exams were available for comparison FINDINGS: BONES: There is an acute appearing fracture of the anteroinferior aspect of the glenoid. There is mi nimal separation at the articular surface. No additional fractures are identified. The visualized p ortions of the right ribs appear intact. Humeral head is normally position. The AC joint is not wid ened. No bony destructive lesion is seen. IMPRESSION: Fracture of the anteroinferior glenoid. DATA REPOSITORY: RADIATION DOSE DELIVERED:
--- NOTE | 2020-04-23 13:20 | DI.RAD_ITS ---
EXAM: XR CHEST 2V PA LATERAL CLINICAL HISTORY: CHEST WALL PAIN,R07.89, +T1-T2 SPINAL TENDERNESS W/PALPATION, S/P FALL 04/19 TECHNIQUE: 2D digital imaging was performed. COMPARISON: CR LEFT SHOULDER COMPLETE from 09/01/2015 FINDINGS: The heart is enlarged. The aorta is tortuous. The lungs appear clear. No pneumothorax is seen. Ar e degenerative changes in the thoracic spine. No compression fractures are seen. No rib fractures a re visible. IMPRESSION: Cardiomegaly, no acute abnormality. DATA REPOSITORY: RADIATION DOSE DELIVERED:
== END 2020-04-23 10:24 ==
PROVIDERS: PCP Family Medicine; Visit Provider Nurse Practitioner Family
DX: I51.7 Cardiomegaly (principal); R07.89 Other chest pain; M47.816 Spondylosis without myelopathy or radiculopathy, lumbar region
CPT/HCPCS: 71046; 73030

== ENCOUNTER 2020-04-27 00:52 | Outpatient (CLI) | payer MEDICAID, SELFPAY ==
--- NOTE | 2020-04-27 06:45 | DI.CT_ITS ---
EXAM: CT UPPER EXTREMITY RT WO CLINICAL HISTORY: Glenoid fracture, Bony Bankart,S42.143A,S42.153A. TECHNIQUE: Imaging Protocol: Axial computed tomography images with coronal and sagittal reformatted images were created and reviewed. COMPARISON: CR XR SHOULDER RT COMPLETE 2+V from 04/23/2020 FINDINGS: Bones: There is an obliquely oriented fracture involving the anterior inferior glenoid. There is min imal displacement of the fracture noted. Bony alignment of the shoulder is otherwise satisfactory. No cellulitic or osteomyelitic changes are identified. Mild degenerative changes are seen at the acr omioclavicular joint. No lytic or sclerotic lesions are identified. Soft Tissues: There is mild edema in the soft tissues adjacent to the glenoid fracture. Incidental note is made of a 3.9 x 1.6 cm lipoma in the right axilla. IMPRESSION: Minimally displaced fracture involving the anterior inferior glenoid. RADIATION DOSE DELIVERED: 959.42mGy.cm Total DLP 959.42mGy.cm Total DLP DATA REPOSITORY: All CT scans at this facility are submitted to the National Radiology Data Registry (NRDR) Dose Index Registry (DIR) with the [employer] ([employer]). RADIATION OPTIMIZATION: All CT scans at this facility use at least one of these dose optimization te chniques: automated exposure control; mA and/or kV adjustment per patient size (includes targeted exa ms where dose is matched to clinical indication); or iterative reconstruction.
== END 2020-04-27 01:12 ==
PROVIDERS: PCP Family Medicine; Visit Provider Student in an Organized Health Care Education/Training Program
DX: S42.141A Displaced fracture of glenoid cavity of scapula, right shoulder, initial encounter for closed fracture (principal); M19.011 Primary osteoarthritis, right shoulder
CPT/HCPCS: 73200

== ENCOUNTER 2020-05-05 15:04 | Outpatient (CLI) | payer MEDICAID, SELFPAY ==
--- NOTE | 2020-05-05 13:45 | DI.RAD_ITS ---
EXAM: XR SHOULDER RT COMPLETE 2+V CLINICAL HISTORY: shoulder pain. TECHNIQUE: 2D digital imaging was performed. COMPARISON: CR XR SHOULDER RT COMPLETE 2+V from 04/23/2020 FINDINGS: BONES: No acute fracture is present. No bony destructive lesion is seen. JOINTS: No dislocation present. Mild degenerative changes are seen at the acromioclavicular joint. SOFT TISSUE: Normal. IMPRESSION: Mild degenerative changes of the AC joint. DATA REPOSITORY: RADIATION DOSE DELIVERED:
== END 2020-05-05 15:24 ==
PROVIDERS: PCP Family Medicine; Visit Provider Student in an Organized Health Care Education/Training Program
DX: M19.011 Primary osteoarthritis, right shoulder (principal)
CPT/HCPCS: 73030

== ENCOUNTER 2020-06-02 16:03 | Outpatient (CLI) | payer MEDICAID, SELFPAY ==
--- NOTE | 2020-06-02 15:00 | DI.RAD_ITS ---
EXAM: XR SHOULDER RT COMPLETE 2+V CLINICAL HISTORY: f/u fracture. TECHNIQUE: 2D digital imaging was performed. COMPARISON: CR XR SHOULDER RT COMPLETE 2+V from 05/05/2020 FINDINGS: BONES: No change in appearance of the fracture of the right glenoid. No bony destructive lesion is s een. JOINTS: No dislocation present. SOFT TISSUE: Normal. IMPRESSION: Stable right glenoid fracture. DATA REPOSITORY: RADIATION DOSE DELIVERED:
== END 2020-06-02 16:23 ==
PROVIDERS: PCP Family Medicine; Visit Provider Student in an Organized Health Care Education/Training Program
DX: S42.141A Displaced fracture of glenoid cavity of scapula, right shoulder, initial encounter for closed fracture (principal)
CPT/HCPCS: 73030

== ENCOUNTER 2020-07-14 16:08 | Outpatient (CLI) | payer OTHER, SELFPAY ==
--- NOTE | 2020-07-14 14:41 | DI.RAD_ITS ---
EXAM: XR SHOULDER RT COMPLETE 2+V CLINICAL HISTORY: f/u. TECHNIQUE: 2D digital imaging was performed. COMPARISON: CR XR SHOULDER RT COMPLETE 2+V from 04/23/2020 CR XR SHOULDER RT COMPLETE 2+V from 06/02/2020 FINDINGS: BONES: There is a stable fracture deformity of the glenoid. No new fracture or dislocation. No bony destructive lesion is seen. JOINTS: No dislocation present. SOFT TISSUE: Normal. IMPRESSION: Stable fracture deformity of the right glenoid. DATA REPOSITORY: RADIATION DOSE DELIVERED:
== END 2020-07-14 16:09 | disposition home or self-care (01) ==
LOC: DIORS 16:09
PROVIDERS: PCP Family Medicine; Visit Provider Student in an Organized Health Care Education/Training Program
DX: S42.141A Displaced fracture of glenoid cavity of scapula, right shoulder, initial encounter for closed fracture (principal)
CPT/HCPCS: 73030

== ENCOUNTER 2020-08-16 19:51 | Outpatient (REF) | payer MEDICAID, SELFPAY ==
[2020-08-16 18:00] LABS: HCT 37.6 % (36.0-46.0); HGB 11.6 g/dL (11.2-15.7); MCHC 30.9 % (32.0-36.0); MCV 84.1 fL (80-95); MPV 9.4 fL (8.0-11.0); Platelet Count 301 10^3/uL (130-400); RBC 4.47 10^6/uL (3.93-5.22); RDW 14.9 % (11.7-14.6); RDW-SD 45.9 fL; WBC 4.11 10^3/uL (4.4-10.8)
[2020-08-16 18:11] LABS: Iron 21 ug/dL (50-170); Total Iron Binding Capacity 505 ug/dL (250-450); Transferrin Sat 4 % (15-50)
[2020-08-16 18:35] LABS: Vitamin D 25 Total 13.9 ng/mL (30-100)
[2020-08-16 18:43] LABS: ALT 29 U/L (14-59); AST 17 U/L (15-37); Albumin 3.8 g/dL (3.4-5.0); Alkaline Phosphatase 108 U/L (46-116); Anion Gap 7.5 mmol/L (3-11); BUN 16 mg/dL (7-18); Bilirubin, Total 0.3 mg/dL (0.2-1.0); CO2 26.5 mmol/L (21.0-32.0); CREATININE 0.7 mg/dL (0.55-1.02); Calcium 8.6 mg/dL (8.5-10.1); Chloride 106 mmol/L (98-107); Glucose 88 mg/dL (74-106); Magnesium 1.9 mg/dL (1.8-2.4); Potassium 4.3 mmol/L (3.5-5.1); Sodium 140 mmol/L (136-145); TSH (W/Ref FT4) 1.35 uIU/mL (0.36-3.74); Total Protein 7.1 g/dL (6.4-8.2); Vitamin B12 209 pg/mL (193-986)
== END 2020-08-16 19:52 | disposition home or self-care (01) ==
LOC: NCHCN 19:51
PROVIDERS: PCP Family Medicine; Visit Provider Family Medicine
DX: Z98.84 Bariatric surgery status (principal); E53.8 Deficiency of other specified B group vitamins; I10 Essential (primary) hypertension; D51.0 Vitamin B12 deficiency anemia due to intrinsic factor deficiency; E55.9 Vitamin D deficiency, unspecified
CPT/HCPCS: 80053; 82306; 85027; 82607; 83540; 83550; 83735; 84443

== ENCOUNTER 2020-08-23 09:21 | Outpatient (CLI) | payer MEDICAID, SELFPAY ==
--- NOTE | 2020-08-23 09:00 | DI.RAD_ITS ---
EXAM: XR HIP PELVIS ADULT BL CLINICAL HISTORY: L MARIEL, R hip pain. TECHNIQUE: 2D digital imaging was performed. COMPARISON: CR XR HIP LT COMPLETE AP PELVIS from 10/02/2019 FINDINGS: Left hip prosthesis remains well positioned. No fracture or obvious loosening. No radiographic evid ence of osteomyelitis. Opposite-right hip remains unremarkable. IMPRESSION: DATA REPOSITORY: RADIATION DOSE DELIVERED:
== END 2020-08-23 09:22 | disposition home or self-care (01) ==
LOC: DIORS 09:22
PROVIDERS: PCP Family Medicine; Referring Provider Family Medicine; Visit Provider Student in an Organized Health Care Education/Training Program
DX: M25.551 Pain in right hip (principal); Z96.642 Presence of left artificial hip joint
CPT/HCPCS: 73521

== ENCOUNTER 2020-10-04 10:59 | Outpatient (CLI) | payer MEDICAID, SELFPAY ==
--- NOTE | 2020-10-04 09:45 | DI.RAD_ITS ---
Exam(s) XR LUMBAR SPINE AP, LAT EXAM: XR LUMBAR SPINE AP, LAT CLINICAL HISTORY: right hip pain. TECHNIQUE: 2D digital imaging was performed. COMPARISON: CR LUMBAR SPINE COMPLETE from 12/10/2011 FINDINGS: Since 2011 there has been placement of a left hip prosthesis. Is no evidence of compression fracture but there is now an element of degenerative anterolisthesis of L4 upon L5 which has increased and measures approximately 8 millimeters anterior slippage of L4 upon L5 due to degenerative changes in the facet joints. Is only mild narrowing at this L4-5 disc space. Advanced narrowing is again noted L5-S1 disc space and there has been some progression of disc narrow ing at L3-4 level. Degenerative anterior osseous lipping at the levels above this noted. Mild scoli osis convex left. Sacroiliac joints appear unremarkable. Surgical clips in the right upper quadrant from cholecystectomy are noted. There are multilevel degenerative changes in the facet joints that have increased. IMPRESSION: Multilevel disc disease. Also increasing anterolisthesis of L4 upon L5 due to degenerative changes i n the facet joints at this level. DATA REPOSITORY: RADIATION DOSE DELIVERED:
== END 2020-10-04 11:00 | disposition home or self-care (01) ==
LOC: DIORS 10:59
PROVIDERS: PCP Family Medicine; Referring Provider Family Medicine; Visit Provider Physician Assistant
DX: M25.551 Pain in right hip (principal); Z96.642 Presence of left artificial hip joint; M51.37 Other intervertebral disc degeneration, lumbosacral region; M47.897 Other spondylosis, lumbosacral region
CPT/HCPCS: 72100

== ENCOUNTER 2020-10-12 08:14 | Outpatient (REF) | payer MEDICAID, SELFPAY ==
[2020-10-12 16:14] LABS: Anion Gap 9.1 mmol/L (3-11); BUN 21 mg/dL (7-18); CO2 28.9 mmol/L (21.0-32.0); CREATININE 0.7 mg/dL (0.55-1.02); Calcium 8.4 mg/dL (8.5-10.1); Chloride 106 mmol/L (98-107); Glucose 64 mg/dL (74-106); Potassium 3.9 mmol/L (3.5-5.1); Sodium 144 mmol/L (136-145)
== END 2020-10-12 08:15 | disposition home or self-care (01) ==
LOC: NCHCN 08:14
PROVIDERS: PCP Family Medicine; Visit Provider Family Medicine
DX: I10 Essential (primary) hypertension (principal)
CPT/HCPCS: 80048

== ENCOUNTER 2020-10-21 01:52 | Outpatient (CLI) | payer MEDICAID, SELFPAY ==
--- NOTE | 2020-10-21 08:45 | DI.MRI_ITS ---
Exam(s) MR LUMBAR SPINE WO EXAM: MR LUMBAR SPINE WO CLINICAL HISTORY: LUMBOSACRAL DISC HERNIATION,M51.27, BACK PAIN. TECHNIQUE: Multiplanar multisequence MRI of the Lumbar spine was performed. COMPARISON: MR MRI - LUMBAR SPINE WO CONTRAST from 09/08/2009 CR XR LUMBAR SPINE AP, LAT from 10/04/2020 CR XR LUMBAR SPINE AP, LAT from 10/04/2020 FINDINGS: Bones: The last intervertebral disc space is designated the L5/S1 level for the numbering purpose of this examination. The vertebral body heights are well maintained. Alignment is satisfactory. The ma rrow signal shows some red marrow reconversion. Cord: The conus tip ends at the L1 level. It is of normal size and signal intensity. T12-L1: Mild concentric disc bulging and small endplate osteophytes. No central spinal canal or neur al foraminal stenosis. L1-2: Mild concentric disc bulging and small endplate osteophytes.. No central spinal canal or neura l foraminal stenosis. L2-3: Minimal disc bulging. Normal disc height.. No central spinal canal or neural foraminal stenos is. L3-4: Moderate loss of disc height. Prominent, broad-based disc bulging. Mild facet degenerative ch anges and ligamentous hypertrophy. Mild central spinal canal stenosis. Moderate neural foraminal st enosis, greater on the left.. L4-5: No disc herniation. Mild loss of disc height posteriorly and mild concentric disc bulging. Pr ominent facet joint degenerative changes. No neural foraminal stenosis. [id number] central ca nal stenosis. L5-S1: Severe loss of disc height. Endplate osteophytes and mild concentric disc bulging. Degenerat sharifa signal changes in the endplates. Facet degenerative changes, mild. No significant central canal stenosis. Moderate bilateral neural foraminal narrowing. Sacrum: Right-sided nerve root sheath cyst at S3. Soft tissues: The visualized SI joints are well maintained. The paraspinal soft tissues are unremarka ble. Aorta is normal in diameter IMPRESSION: L3-4 mild central canal stenosis and bilateral neural foraminal narrowing. Moderate central canal stenosis at L4 5 secondary to combination of degenerative changes. Moderate bilateral neural foraminal narrowing at L5-S1 DATA REPOSITORY:
== END 2020-10-21 02:12 ==
PROVIDERS: PCP Family Medicine; Visit Provider Student in an Organized Health Care Education/Training Program
DX: M54.5 Low back pain (principal); M51.27 Other intervertebral disc displacement, lumbosacral region; M48.07 Spinal stenosis, lumbosacral region
CPT/HCPCS: 72148

== ENCOUNTER 2020-11-17 16:03 | Outpatient (REF) | payer MEDICAID, SELFPAY ==
[2020-11-17 15:51] LABS: Anion Gap 11.2 mmol/L (3-11); BUN 14 mg/dL (7-18); CO2 26.8 mmol/L (21.0-32.0); CREATININE 0.9 mg/dL (0.55-1.02); Calcium 8.4 mg/dL (8.5-10.1); Chloride 107 mmol/L (98-107); Glucose 104 mg/dL (74-106); Potassium 3.7 mmol/L (3.5-5.1); Sodium 145 mmol/L (136-145)
== END 2020-11-17 16:04 | disposition home or self-care (01) ==
LOC: NCHCN 16:03
PROVIDERS: PCP Family Medicine; Visit Provider Family Medicine
DX: I10 Essential (primary) hypertension (principal)
CPT/HCPCS: 80048

== ENCOUNTER 2021-02-16 21:18 | Outpatient (REF) | payer MEDICAID, SELFPAY ==
[2021-02-16 20:39] LABS: HCT 39.5 % (36.0-46.0); HGB 12.4 g/dL (11.2-15.7); MCH 27.4 pg (27.0-33.0); MCHC 31.4 % (32.0-36.0); MCV 87.4 fL (80-95); MPV 10.2 fL (8.0-11.0); Platelet Count 265 10^3/uL (130-400); RBC 4.52 10^6/uL (3.93-5.22); RDW 14.4 % (11.7-14.6); RDW-SD 46.2 fL; WBC 3.86 10^3/uL (4.4-10.8)
[2021-02-16 20:53] LABS: Anion Gap 6.6 mmol/L (3-11); BUN 14 mg/dL (7-18); CO2 27.4 mmol/L (21.0-32.0); CREATININE 0.8 mg/dL (0.55-1.02); Calcium 8.7 mg/dL (8.5-10.1); Chloride 108 mmol/L (98-107); Glucose 74 mg/dL (74-106); Potassium 4.2 mmol/L (3.5-5.1); Sodium 142 mmol/L (136-145)
== END 2021-02-16 21:19 | disposition home or self-care (01) ==
LOC: NCHCN 21:18
PROVIDERS: PCP Family Medicine; Visit Provider Family Medicine
DX: I10 Essential (primary) hypertension (principal); E61.1 Iron deficiency
CPT/HCPCS: 80048; 85027

== ENCOUNTER 2021-05-10 15:21 | Outpatient (REF) | payer MEDICAID, SELFPAY ==
[2021-05-10 19:25] LABS: Anion Gap 8.3 mmol/L (3-11); BUN 14 mg/dL (7-18); CO2 28.7 mmol/L (21.0-32.0); CREATININE 0.9 mg/dL (0.55-1.02); Calcium 9.1 mg/dL (8.5-10.1); Chloride 103 mmol/L (98-107); Glucose 76 mg/dL (74-106); Potassium 4.1 mmol/L (3.5-5.1); Sodium 140 mmol/L (136-145)
== END 2021-05-10 15:22 | disposition home or self-care (01) ==
LOC: LBN 15:21
PROVIDERS: PCP Family Medicine; Visit Provider Family Medicine
DX: I10 Essential (primary) hypertension (principal)
CPT/HCPCS: 80048

== ENCOUNTER 2021-07-14 03:47 | Outpatient (CLI) | payer MEDICAID, SELFPAY ==
--- NOTE | 2021-07-14 | DI.MAMMO_ITS ---
Exam(s) MAMMO SCREENING EXAM: MAMMO SCREENING CLINICAL HISTORY: SCREENING FOR BREAST CANCER Z12.39 TECHNIQUE: Mammograms were interpreted according to the usual protocol including computer analysis w [employer] CAD system, tomosynthesis and C-view imaging. COMPARISON: 2019 FINDINGS: The breasts are composed of scattered fibroglandular densities, Breast Density category B. No suspicious masses or suspicious microcalcifications are seen. No skin thickening or abnormal axillary lymph nodes are seen. There has been no significant change from prior exams. IMPRESSION: BI-RADS Category 1, Negative mammogram Yearly screening mammography is recommended. Breast Density - Category B, scattered fibroglandular densities. A negative radiographic report should not delay biopsy if a dominant or clinically suspicious mass is present. Up to ten percent of cancers are not identified on mammography. A negative report may reinforce clinical impression. Adenosis and dense breasts may obscure an underlying neoplasm. False positive reports average 6 to 10%. Patient will receive a letter notifying them of these results.
== END 2021-07-14 04:07 ==
PROVIDERS: PCP Family Medicine; Visit Provider Family Medicine
DX: Z12.31 Encounter for screening mammogram for malignant neoplasm of breast (principal)
CPT/HCPCS: 77063; 77067

== ENCOUNTER 2021-10-17 12:34 | Outpatient (REF) | payer MEDICAID, SELFPAY ==
--- NOTE | 2021-10-17 11:00 | SKI_PTH ---
PATIENT: Socorro Salinas LOC: [facility] U#:[id number] AGE/SX: 56/F ROOM: RE10/17/[address]: Golden Womack : 1965 BED: DIS: 10/17/2021 SPEC #: [id number] RECD: 10/18/21 12:08 STATUS: CYNDY REPavan #: [id number] VITALIY: 10/17/21 11:[address]: Golden Womack DEPT: Surgical Specimen RECD BY: Kiki Abdul ENTERED: 10/18/21 12:09 SP TYPE: JAMES THOMAS DR: Sharda James Tissues: 1 - SKIN BIOPSY(SHAVE/PUNCH) Procedures: SKIN LEVEL 4 Comments: [id number]
== END 2021-10-17 12:35 | disposition home or self-care (01) ==
LOC: NCHCN 12:34
PROVIDERS: PCP Nurse Practitioner; Visit Provider Family Medicine
DX: L82.1 Other seborrheic keratosis (principal)
CPT/HCPCS: 88305

== ENCOUNTER 2022-12-18 10:29 | Outpatient (CLI) | payer MEDICAID, SELFPAY ==
--- NOTE | 2022-12-18 10:00 | DI.RAD_ITS ---
Exam(s) XR HIP RT COMPLETE AP PELVIS EXAM: XR HIP RT COMPLETE AP PELVIS INDICATION: right hip pain. COMPARISON: CR XR HIP PELVIS ADULT BL from 08/23/2020 TECHNIQUE: 2D digital imaging was performed. Two views. FINDINGS: The right hip joint space is maintained. A small enthesophyte at the greater trochanter. The left h ip prosthesis in is unchanged. IMPRESSION: Unremarkable left hip prosthesis. Right hip unremarkable. DATA REPOSITORY: RADIATION DOSE DELIVERED:
== END 2022-12-18 10:30 | disposition home or self-care (01) ==
LOC: DIORS 10:29
PROVIDERS: PCP Family Medicine; Visit Provider Physician Assistant
DX: M25.551 Pain in right hip (principal); Z98.890 Other specified postprocedural states; Z96.642 Presence of left artificial hip joint
CPT/HCPCS: 73502

== ENCOUNTER 2023-03-06 18:26 | Outpatient (REF) | payer MEDICAID, SELFPAY ==
[2023-03-06 19:21] LABS: HCT 42.7 % (36.0-46.0); HGB 13.8 g/dL (11.2-15.7); MCH 28.3 pg (27.0-33.0); MCHC 32.3 % (32.0-36.0); MCV 88 fL (80-95); MPV 9.5 fL (8.0-11.0); Platelet Count 299 10^3/uL (130-400); RBC 4.88 10^6/uL (3.93-5.22); RDW 13.8 % (11.7-14.6); RDW-SD 44.2 fL; WBC 4.37 10^3/uL (4.4-10.8)
[2023-03-06 19:38] LABS: Iron 55 ug/dL (50-170); Total Iron Binding Capacity 446 ug/dL (250-450); Transferrin Sat 12 % (15-50)
[2023-03-06 20:02] LABS: Vitamin D 25 Total 15.1 ng/mL (30-100)
[2023-03-06 20:07] LABS: ALT 27 U/L (14-59); AST 20 U/L (15-37); Albumin 3.7 g/dL (3.4-5.0); Alkaline Phosphatase 131 U/L (46-116); Anion Gap 10.6 mmol/L (3-11); BUN 12 mg/dL (7-18); Bilirubin, Total 0.4 mg/dL (0.2-1.0); CO2 25.4 mmol/L (21.0-32.0); CREATININE 0.7 mg/dL (0.55-1.02); Calcium 8.9 mg/dL (8.5-10.1); Chloride 106 mmol/L (98-107); Estimated GFR 98.95 (mL/min/1.73m2); Glucose 91 mg/dL (74-106); Sodium 142 mmol/L (136-145); Total Protein 6.8 g/dL (6.4-8.2); Vitamin B12 97 pg/mL (193-986)
== END 2023-03-06 18:27 | disposition home or self-care (01) ==
LOC: NCHCN 18:26
PROVIDERS: PCP Family Medicine; Visit Provider Family Medicine
DX: E53.9 Vitamin B deficiency, unspecified (principal); E61.1 Iron deficiency; I10 Essential (primary) hypertension; Z68.41 Body mass index [BMI] 40.0-44.9, adult
CPT/HCPCS: 80053; 82306; 85027; 82607; 83540; 83550

== ENCOUNTER 2023-03-25 08:52 | Emergency (ER) | payer MEDICAID, SELFPAY ==
[2023-03-25 08:56] VITALS: BP 164/108; PULSE 81; RESP 18; TEMP 35.6; O2SAT 97
--- NOTE | 2023-03-25 09:00 | DI.CT_ITS ---
Exam(s) CT CHEST WO EXAM: CT CHEST WO CLINICAL HISTORY: fall, left chest wall and sternal pain. TECHNIQUE: Multi planar reconstructions were performed. CONTRAST MATERIAL: None COMPARISON: No exams were available for comparison FINDINGS: CHEST: LUNGS: Mild increased markings noted in the lingular segment of the left lung. No large infiltrate n or pleural effusions and no pneumothorax. No findings in the trachea also minimally prominent MEDIASTINUM: No evidence of obvious sternal fracture or mediastinal hematoma. No hilar nor mediastin al adenopathy. CARDIAC: Heart size normal. No pericardial effusion. Diameter of the ascending thoracic aorta is en larged measuring 4.4 cm. Diameter of the aortic arch and proximal descending aorta also mildly enlar ged. Cannot assess for dissection without IV contrast. VISUALIZED UPPER ABDOMEN:No adrenal masses. Gallbladder noted to be surgically absent. There is a l obulated well-defined hypodensity in the superior aspect of the right upper lobe measuring 2 cm by 1. 8 cm and having the appearance of benign cyst, realizing limitations of a noninfused study for determ ining this. Also noted is at anterior abdominal wall midline fat only containing hernia. The hernia sac at this level measures 9.8 cm wide by 4.3 cm AP by approximately 5.8 cm craniocaudal. OSSEOUS: No significant osseous lesions.No obvious fractures evident.. IMPRESSION: 1. No obvious acute fractures evident. No mediastinal hematoma. 2. Dilated ascending aorta exhibiting diameter 4.4 cm. Cannot assess for dissection without IV contr ast. 3. Mild increased markings in the lingular segment of the left lung. No pleural effusions. Incidental note of probable benign cyst in the upper liver measuring 2 x 1.8 cm. RADIATION DOSE DELIVERED: Total DLP DATA REPOSITORY: All CT scans at this facility are submitted to the National Radiology Data Registry (NRDR) Dose Index Registry (DIR) with the [employer] (A[employer]). RADIATION OPTIMIZATION: All CT scans at this facility use at least one of these dose optimization te chniques: automated exposure control; mA and/or kV adjustment per patient size (includes targeted exa ms where dose is matched to clinical indication); or iterative reconstruction.
--- NOTE | 2023-03-25 09:16 | ED.GENADUL_ITS ---
Discharge Plan Disposition Patient Disposition: Home Condition: Good Discharge Details Clinical Impression: Sternal fracture, Fall Primary Care Provider: Golden Womack ED Provider: Georgette Garcia Home Meds and New Rx's Prescriptions: New hydromorphone [Dilaudid] 2 mg tablet 1 mg PO Q6H PRNQty: 5 0RF hydromorphone [Dilaudid] 2 mg tablet 1 mg PO Q6H PRNQty: 3 0RF No Action amitriptyline 25 mg tablet 25 mg PO QHS cyanocobalamin (vitamin B-12) 1,000 mcg/mL kit 1,000 mcg IM QMONTH chlorthalidone 25 mg tablet 25 mg PO DAILY cyclobenzaprine 10 mg tablet 10 mg PO HS amlodipine 10 mg tablet 10 mg PO DAILY Zyrtec 10 mg capsule 10 mg PO DAILY PRN citalopram 40 mg tablet 40 mg PO DAILY cholecalciferol (vitamin D3) 1,000 unit capsule 1,000 unit PO DAILY metoprolol succinate 25 mg tablet extended release 24 hr 25 mg PO DAILY sumatriptan succinate [Imitrex] 25 MG tablet 25 mg PO PRN lisinopril 20 MG tablet 40 mg PO DAILY multivitamin 1 EACH tablet 1 ea PO DAILY omeprazole 20 mg capsule,delayed release(DR/EC) 20 mg PO DAILY Qty: 30 3RF pregabalin 150 mg capsule 150 mg PO BID Qty: 60 0RF spironolactone 50 mg tablet 50 mg PO DAILY dulaglutide 3 mg/0.5 mL pen injector 3 mg subcut QWEEK carvedilol 6.25 mg tablet 6.25 mg PO BID Rx Instructions: must administer with a meal/food hydrochlorothiazide 25 MG tablet 25 mg PO DAILY acetaminophen 500 mg tablet 1,000 mg PO Q8H PRN (Reason: pain) Qty: 90 3RF Discharge Instructions Instructions: Rib Fracture (ED) Additional Instructions: Take tylenol, lidocaine patches, and dilaudid at home for pain; follow the directions on the bottle. Follow up with general surgery for the possible sternal fracture- they will call you to schedule an appointment. Call your primary care doctor tomorrow to schedule an appointment within one week to follow up on your visit here. Continue to follow up on your aneurysem with them. Return to the emergency department for new or worsening symptoms, including worsening pain, difficulty breathing, feeling like you are going to pass out, or if you have any other concerns. Referrals: Golden Womack [Primary Care Provider] - Medical Decision Making 58yo F with HTN presenting with chest wall pain after fall 4 days ago; struck her left chest on a concrete step. Persistent left chest wall since then, worse with coughing and deep breathing. Denies other injuries, no head strike. Vital signs reassuring, on exam she has sternal and left rib tenderness to palpation. No abdominal tenderness; low suspicion for intrabdominal injury, would not image this area or get labs. Given tylenol, toradol, lidocaine patch for pain. CT chest independently reviewed, no displaced fracture or pneumothorax on my view, agree with radiology read below- question of possible non-displaced sternal fracture. Patient already aware of aneurysm; advised to continue followup with PCP for this. On reassessment she reports her pain has improved, breathing feels better. EKG NSR, no evidence of acute ischemia, lows suspicion for blunt cardiac injury; will not check labs. She is unable to take ibuprofen at home as it gives her stomach upset, only tylenol for OTC meds. Given this, will prescribed short course of PO Dilaudid (allergy to codeine/hydrocodone) to allow for improved breathing at home. Referred to general surgery for followup. Discharged home; discharge instructions including return precautions were reviewed with patient who verbalized understanding. All questions were answered and they are in full agreement with the plan. Imaging Data Radiologic Study: Imaging: CT Scan Radiologist's impression: IMPRESSION: 1. Subtle lucency through the sternum. Series 4, image 45. This may represent nondisplaced sternal fracture. 2. Unruptured aneurysm of the ascending aorta 4 cm. 3. Mild opacity in the left lower lobe may represent atelectasis or contusion.. HPI General Mode of arrival: ambulatory . Date/Time Provider Initiated Documentation: 03/25/23 08:54 . Limitations to Documentation: no limitations . Information obtained by: patient . HPI Narrative: 58yo F with HTN presenting with rib pain after a fall. Fell 4 days ago, tripped and fell forward catching herself with her arms but striking the left side of her chest on a concrete step. Since then has had worsening rib pain despite home tylenol, worse with coughing or deep breathing. She did not strike her head or lose consciousness. Her left arm is also sore. Denies pain or injury elsewhere. She is otherwise in her usual state of health with no fevers, chills, rash, nausea, vomiting, abdominal pain, shortness of breath, lightheadedness, numbness, weakness, or other concerns. Related Data Home Medications Medication Instructions Recorded Confirmed hydrochlorothiazide 25 mg tablet 25 mg PO DAILY 12/20/12 03/25/23 lisinopril 20 mg tablet 40 mg PO DAILY 02/17/13 03/25/23 sumatriptan succinate 25 mg tablet 25 mg PO PRN 02/17/13 03/25/23 (Imitrex) multivitamin 1 ea PO DAILY 06/05/17 03/25/23 amitriptyline 25 mg tablet 25 mg PO QHS 09/17/18 03/25/23 chlorthalidone 25 mg tablet 25 mg PO DAILY 09/17/18 03/25/23 cyanocobalamin (vitamin B-12) 1,000 mcg IM QMONTH 09/17/18 03/25/23 1,000 mcg/mL injection kit cyclobenzaprine 10 mg tablet 10 mg PO HS 09/17/18 03/25/23 amlodipine 10 mg tablet 10 mg PO DAILY 09/18/18 03/25/23 cetirizine 10 mg capsule (Zyrtec) 10 mg PO DAILY PRN 09/18/18 03/25/23 cholecalciferol (vitamin D3) 25 1,000 unit PO DAILY 09/18/18 03/25/23 mcg (1,000 unit) capsule citalopram 40 mg tablet 40 mg PO DAILY 09/18/18 03/25/23 omeprazole 20 mg capsule,delayed 20 mg PO DAILY #30 caps 08/14/19 03/25/23 release acetaminophen 500 mg tablet 1,000 mg (2 x 500 mg) PO Q8H PRN 09/16/19 03/25/23 pain #90 tabs pregabalin 150 mg capsule 150 mg PO BID #60 caps 11/07/19 03/25/23 metoprolol succinate 25 mg 25 mg PO DAILY 08/23/20 03/25/23 tablet,extended release 24 hr carvedilol 6.25 mg tablet 6.25 mg PO BID 11/21/22 03/25/23 dulaglutide 3 mg/0.5 mL 3 mg subcut QWEEK 11/21/22 03/25/23 subcutaneous pen injector spironolactone 50 mg tablet 50 mg PO DAILY 11/21/22 03/25/23 hydromorphone 2 mg tablet 1 mg (1/2 x 2 mg) PO Q6H PRN #3 03/25/23 (Dilaudid) tabs hydromorphone 2 mg tablet 1 mg (1/2 x 2 mg) PO Q6H PRN #5 03/25/23 (Dilaudid) tabs Previous Rx's Medication Instructions Recorded omeprazole 20 mg capsule,delayed 20 mg PO DAILY #30 caps 08/14/19 release acetaminophen 500 mg tablet 1,000 mg (2 x 500 mg) PO Q8H PRN 09/16/19 pain #90 tabs pregabalin 150 mg capsule 150 mg PO BID #60 caps 11/07/19 hydromorphone 2 mg tablet 1 mg (1/2 x 2 mg) PO Q6H PRN #3 03/25/23 (Dilaudid) tabs hydromorphone 2 mg tablet 1 mg (1/2 x 2 mg) PO Q6H PRN #5 03/25/23 (Dilaudid) tabs Allergies Allergy/AdvReac Type Severity Reaction Status Date / Time hydrocodone AdvReac Severe Itching Unverified 03/25/23 08:58 oxycodone [From Percocet] AdvReac Severe Itching Unverified 03/25/23 08:58 cortisone AdvReac Intermediate Itching Unverified 03/25/23 08:58 Paper Tape AdvReac Intermediate Itching Uncoded 03/25/23 08:58 steroid injections AdvReac Mild Itching Uncoded 03/25/23 08:58 General Stated Complaint: Chest/Rib GEO: 3 PFSH All Active Problems (Updated 03/25/23 @ 10:36 by Georgette Garcia MD) Fall (Acute) Sternal fracture (Acute) Degenerative disc disease, lumbar (Acute) Sciatica (Acute) Trochanteric bursitis, left hip (Acute) Trochanteric bursitis, right hip (Acute) DEPO MEDROL 12/18/22 Glenoid fracture of shoulder (Acute 04/19/20) Right Lumbosacral disc herniation (Acute) Status post left hip replacement (Acute 09/16/19) Right upper quadrant pain (Acute) History of Surgical Procedure (Chronic) a. Laparoscopic cholecystectomy with intraoperative cholangiogram. Numbness (Acute 02/24/13) Medical History (Updated 03/25/23 @ 10:36 by Georgette Garcia MD) Osteonecrosis of left hip s/p Anterior L MARIEL (09/16/19) Seborrheic dermatitis of scalp Depression, major, single episode, severe Vitamin B 12 deficiency Pernicious anemia Osteoarthritis of knees, bilateral Pruritus Fibromyalgia Migraine Vitamin D deficiency Arthritis of left shoulder region Restless legs DDD (degenerative disc disease), cervical Sacroiliac joint pain Peripheral neuropathy Fatigue Renal insufficiency Trigger finger, left ring finger Carpal tunnel syndrome, left Obesity HTN (hypertension) GERD (gastroesophageal reflux disease) Surgical History History of right knee joint replacement History of H/O shoulder surgery Left Hx of BSO (bilateral salpingo-oophorectomy) Hx laparoscopic cholecystectomy S/P ABEBE (total abdominal hysterectomy) History of knee replacement Left and revision ~2004 Right - early 1999s Colonoscopy - MAC (06/29/17) Hx of bariatric surgery (~1998) States injury to spleen required drain Family History Grandfather Colon cancer Social History Smoking/Tobacco Use Status: Never Smoking risk assessment performed?: Yes 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 No rashes, bruises, discolorations or abrasions. HEAD: Atraumatic, normocephalic without edema, discoloration or evidence of trauma. EYES: No scleral icterus or conjunctival injection. NECK: Trachea midline. No discolorations or edema. CV: Regular rate and rhythm, Normal s1 and s2. No murmurs, rubs, or gallops. PV: Radial pulses 2+ bilaterally and symmetric. 2+ capillary refill. No extremity edema. CHEST: No abrasions or ecchymosis. Chest symmetric with respirations. Sternum and left chest wall both anterior and posterior TTP. Lungs are clear to auscul tation bilaterally. ABDOMEN: No ecchymosis or abrasions. Soft, nondistended, nontender. BACK: No abrasions, skin openings, or ecchymosis. PELVIC: Pelvis stable, nontender to lateral compression MSK: No gross deformities or discolorations or lesions. Tolerates full range of motion of extremities without tenderness. NEURO: Alert and oriented to person, place, and time. GCS 15. Sensation grossly intact. Moves all extremities freely against gravity. Course Vital Signs Vital signs: Vital Signs Temperature 35.6 C L 03/25/23 08:56 Pulse 81 03/25/23 08:56 Respiratory Rate 18 03/25/23 08:56 Blood Pressure 164/108 H 03/25/23 08:56 Pulse Oximetry 97 03/25/23 08:56 Temperature 35.6 C L 03/25/23 08:56 Temperature Source Temporal Artery Scan 03/25/23 08:56 Pulse 81 03/25/23 08:56 Respiratory Rate 18 03/25/23 08:56 Respiratory Effort Normal, Non-Labored 03/25/23 09:01 Blood Pressure 164/108 H 03/25/23 08:56 Blood Pressure Position Sitting 03/25/23 08:56 Pulse Oximetry 97 03/25/23 08:56 Oxygen Delivery Method Room Air 03/25/23 08:56 Oxygen Flow Rate 0 03/25/23 08:56
[2023-03-25] MEDS: Acetaminophen 500 MG TAB 1000 MG PO (09:22)
[2023-03-25] MEDS: Ketorolac 15 MG/ML VIAL IM (09:23)
[2023-03-25] MEDS: Lidocaine 5% Patch 2 PATCH TP (09:24)
--- NOTE | 2023-03-25 10:00 | RT.EKG_ITS ---
APPROVED REPORT Exam: Resting ECG Reason for Exam: possible sternal fracture Patient Location: E HR:66 bpm ECG Measurements Heart Rate 66 AXIS CA 157 P 41 QRSd 92 QRS 3 QT 421 T 133 QTc 441 Conclusion Sinus rhythm...V-rate 60- [address] segment or T wave abnormalities to suggest occlusive DC
--- NOTE | 2023-03-25 10:10 | DI.VRAD_ITS ---
PROCEDURE INFORMATION: Exam: CT Chest Without Contrast; Diagnostic Exam date and time: 03/25/2023 9:28 AM Age: 58 years old Clinical indication: Other: Fall, left chest wall and sternal pain TECHNIQUE: Imaging protocol: Diagnostic computed tomography of the chest without contrast. 3D rendering (Not supervised by radiologist): MIP and/or 3D reconstructed images were created by the technologist. Radiation optimization: All CT scans at this facility use at least one of these dose optimization techniques: automated exposure control; mA and/or kV adjustment per patient size (includes targeted exams where dose is matched to clinical indication); or iterative reconstruction. COMPARISON: CR XR CHEST 2V PA LATERAL 04/23/2020 1:05 PM FINDINGS: Lungs: Mild opacity in the left lower lobe may represent atelectasis or contusion.. Pleural spaces: Unremarkable. No pneumothorax. No pleural effusion. Heart: Unremarkable. No cardiomegaly. No pericardial effusion. Coronary arteries: Coronary artery calcifications may indicate coronary artery disease. Lymph nodes: Unremarkable. No enlarged lymph nodes. Vasculature: Unruptured aneurysm of the ascending aorta 4 cm. Liver: Simple cyst in the dome of the liver 2 cm. . No follow-up imaging recommended . Gallbladder and bile ducts: Cholecystectomy Stomach and bowel: Sutures in the stomach Bones/joints: Subtle lucency through the sternum. Series 4, image 45. This may represent nondisplaced sternal fracture. Healing right 7th rib fracture Soft tissues: Ventral hernia contains inflamed fat. No bowel IMPRESSION: 1. Subtle lucency through the sternum. Series 4, image 45. This may represent nondisplaced sternal fracture. 2. Unruptured aneurysm of the ascending aorta 4 cm. 3. Mild opacity in the left lower lobe may represent atelectasis or contusion.. Dictated and Authenticated by: Precious Tamayo MD. Ordering:DOMONIQUE Palomino MD
--- NOTE | 2023-03-25 10:39 | NUR.NOTE ---
Referral faxed to [facility] for sternal fx, to be seen in 1 week. Nursing Note:
== END 2023-03-25 10:52 | disposition home or self-care (01) ==
PROVIDERS: Emergency Provider Student in an Organized Health Care Education/Training Program; PCP Family Medicine
DX: S22.20XA Unspecified fracture of sternum, initial encounter for closed fracture (principal); I10 Essential (primary) hypertension; R94.31 Abnormal electrocardiogram [ECG] [EKG]; W00.0XXA Fall on same level due to ice and snow, initial encounter; Y93.01 Activity, walking, marching and hiking; R07.89 Other chest pain
CPT/HCPCS: 71250; 93005; 99284; 93010; 99283; J1885

== ENCOUNTER 2023-04-23 09:16 | Emergency (ER) | payer MEDICAID, SELFPAY ==
[2023-04-23 09:19] VITALS: BP 197/142; PULSE 71; RESP 18; TEMP 36.9; O2SAT 97
--- NOTE | 2023-04-23 10:24 | ED.GENADUL_ITS ---
Discharge Plan Disposition Patient Disposition: Home Condition: Stable Discharge Details Clinical Impression: COVID, Elevated blood pressure reading Primary Care Provider: Golden Womack ED Provider: Narendra Coombs Home Meds and New Rx's Prescriptions: Continued amitriptyline 25 mg tablet 25 mg PO QHS cyanocobalamin (vitamin B-12) 1,000 mcg/mL kit 1,000 mcg IM QMONTH chlorthalidone 25 mg tablet 25 mg PO DAILY cyclobenzaprine 10 mg tablet 10 mg PO HS amlodipine 10 mg tablet 10 mg PO DAILY Zyrtec 10 mg capsule 10 mg PO DAILY PRN citalopram 40 mg tablet 40 mg PO DAILY cholecalciferol (vitamin D3) 1,000 unit capsule 1,000 unit PO DAILY metoprolol succinate 25 mg tablet extended release 24 hr 25 mg PO DAILY sumatriptan succinate [Imitrex] 25 MG tablet 25 mg PO PRN lisinopril 20 MG tablet 40 mg PO DAILY multivitamin 1 EACH tablet 1 ea PO DAILY omeprazole 20 mg capsule,delayed release(DR/EC) 20 mg PO DAILY Qty: 30 3RF pregabalin 150 mg capsule 150 mg PO BID Qty: 60 0RF spironolactone 50 mg tablet 50 mg PO DAILY dulaglutide 3 mg/0.5 mL pen injector 3 mg subcut QWEEK carvedilol 6.25 mg tablet 6.25 mg PO BID Rx Instructions: must administer with a meal/food hydrochlorothiazide 25 MG tablet 25 mg PO DAILY acetaminophen 500 mg tablet 1,000 mg PO Q8H PRN (Reason: pain) Qty: 90 3RF Discharge Instructions Instructions: COVID-19 and Children (ED) Additional Instructions: Take Paxlovid. Dose according to label. Note that Paxlovid may increase the effects of your blood pressure medicine amlodipine. Please monitor your blood pressure at least twice daily while taking Paxlovid and for 3 days after Paxlovid. Should your blood pressure be lower than normal, decrease your daily amlodipine dose by one half. You may continue normal dosing 3 days after completion of Paxlovid. Your blood pressure was elevated this morning. The reason your blood pressure is still elevated is because you did not take your blood pressure medicine yet today. After discharge please go home and and take all of your blood pressure medicine as prescribed. Please maintain home isolation for the next 5 days. Wear a high-quality mask if you must be around others at home and in public. Do not go places where you are unable to wear a mask. For travel guidance, see CDC?s Travel webpage. Do not travel. Stay home and separate from others as much as possible. Use a separate bathroom, if possible. Take steps to improve ventilation at home, if possible. Don?t share personal household items, like cups, towels, and utensils. Monitor your symptoms. If you have an emergency warning sign (like trouble breathing), seek emergency medical care immediately. You may end isolation after day 5 if your symptoms are improving and you are fever free for 24 hours without the use of fever reducing medication. If your symptoms are not improving at day 5 continue to isolate until symptoms are improving and you are fever free for 24 hours without the use of fever reducing medication. Please contact your primary care physician to arrange follow-up. Return to the ER immediately for any worsening or new concerning symptoms. Referrals: Golden Womack [Primary Care Provider] - Medical Decision Making 58-year-old female here with cough, rhinorrhea, sore throat and headache. Patient is generally not feeling well. Patient is saturating well in no respiratory distress with clear lung sounds bilaterally. She is notably hypertensive on arrival but did not take her a.m. meds as prescribed. COVID testing was performed and patient is positive for COVID. She last had COVID about a year ago and was treated with Paxlovid at that time. She does provide informed consent to treat with Paxlovid again. I reviewed medications with pharmacy and they do recommend potentially decreasing amlodipine dose by half. Given her significant hypertension at this time I am going to have her full dose as prescribed today and then monitor blood pressure closely while on Paxlovid. Comprehensive discharge instructions were reviewed with the patient. Patient was encouraged to return immediately should she have any worsening or new jose rning symptoms. She understands she should return home and take her medications as prescribed at this time. HPI General Mode of arrival: ambulatory . Date/Time Provider Initiated Documentation: 04/23/23 09:25 . Limitations to Documentation: no limitations . Information obtained by: patient . HPI Narrative: 58-year-old female with history of multiple medical problems including hypertension, here with chief complaint of respiratory illness. Patient notes for the past 4 days she has had cough, runny nose, sore throat and headache as well as ear fullness. Patient notes relative recently tested positive for COVID. She has no associated shortness of breath. Patient states she did not take her prescribed medications today as prescribed. Related Data Home Medications Medication Instructions Recorded Confirmed hydrochlorothiazide 25 mg tablet 25 mg PO DAILY 12/20/12 04/23/23 lisinopril 20 mg tablet 40 mg PO DAILY 02/17/13 04/23/23 sumatriptan succinate 25 mg tablet 25 mg PO PRN 02/17/13 04/23/23 (Imitrex) multivitamin 1 ea PO DAILY 06/05/17 04/23/23 amitriptyline 25 mg tablet 25 mg PO QHS 09/17/18 04/23/23 chlorthalidone 25 mg tablet 25 mg PO DAILY 09/17/18 04/23/23 cyanocobalamin (vitamin B-12) 1,000 mcg IM QMONTH 09/17/18 04/23/23 1,000 mcg/mL injection kit cyclobenzaprine 10 mg tablet 10 mg PO HS 09/17/18 04/23/23 amlodipine 10 mg tablet 10 mg PO DAILY 09/18/18 04/23/23 cetirizine 10 mg capsule (Zyrtec) 10 mg PO DAILY PRN 09/18/18 04/23/23 cholecalciferol (vitamin D3) 25 1,000 unit PO DAILY 09/18/18 04/23/23 mcg (1,000 unit) capsule citalopram 40 mg tablet 40 mg PO DAILY 09/18/18 04/23/23 omeprazole 20 mg capsule,delayed 20 mg PO DAILY #30 caps 08/14/19 04/23/23 release acetaminophen 500 mg tablet 1,000 mg (2 x 500 mg) PO Q8H PRN 09/16/19 04/23/23 pain #90 tabs pregabalin 150 mg capsule 150 mg PO BID #60 caps 11/07/19 04/23/23 metoprolol succinate 25 mg 25 mg PO DAILY 08/23/20 04/23/23 tablet,extended release 24 hr carvedilol 6.25 mg tablet 6.25 mg PO BID 11/21/22 04/23/23 dulaglutide 3 mg/0.5 mL 3 mg subcut QWEEK 07/11/23 12/11/23 subcutaneous pen injector spironolactone 50 mg tablet 50 mg PO DAILY 11/21/22 04/23/23 Previous Rx's Medication Instructions Recorded omeprazole 20 mg capsule,delayed 20 mg PO DAILY #30 caps 08/14/19 release acetaminophen 500 mg tablet 1,000 mg (2 x 500 mg) PO Q8H PRN 09/16/19 pain #90 tabs pregabalin 150 mg capsule 150 mg PO BID #60 caps 11/07/19 Allergies Allergy/AdvReac Type Severity Reaction Status Date / Time hydrocodone AdvReac Severe Itching Unverified 04/23/23 09:22 oxycodone [From Percocet] AdvReac Severe Itching Unverified 04/23/23 09:22 cortisone AdvReac Intermediate Itching Unverified 04/23/23 09:22 Paper Tape AdvReac Intermediate Itching Uncoded 04/23/23 09:22 steroid injections AdvReac Mild Itching Uncoded 04/23/23 09:22 General Stated Complaint: RespSymp GEO: 3 Review of Systems All systems reviewed & are unremarkable except as noted in HPI and below Constitutional Constitutional: Denies fever(s) ENT Ears, Nose, Mouth, and Throat: Reports as per HPI Cardiovascular Cardiovascular: Denies chest pain Respiratory Respiratory: Reports cough PFSH All Active Problems Elevated blood pressure reading (Acute) COVID (Acute) Fall (Acute) Sternal fracture (Acute) Degenerative disc disease, lumbar (Acute) Sciatica (Acute) Trochanteric bursitis, left hip (Acute) Trochanteric bursitis, right hip (Acute) DEPO MEDROL 12/18/22 Glenoid fracture of shoulder (Acute 04/19/20) Right Lumbosacral disc herniation (Acute) Status post left hip replacement (Acute 09/16/19) Right upper quadrant pain (Acute) History of Surgical Procedure (Chronic) a. Laparoscopic cholecystectomy with intraoperative cholangiogram. 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 (09/16/19) Seborrheic dermatitis of scalp Depression, major, single episode, severe Vitamin B 12 deficiency Pernicious anemia Osteoarthritis of knees, bilateral Pruritus Fibromyalgia Migraine Vitamin D deficiency Arthritis of left shoulder region Restless legs DDD (degenerative disc disease), cervical Sacroiliac joint pain Peripheral neuropathy Fatigue Renal insufficiency Trigger finger, left ring finger Carpal tunnel syndrome, left Obesity HTN (hypertension) GERD (gastroesophageal reflux disease) Surgical History History of right knee joint replacement History of H/O shoulder surgery Left Hx of BSO (bilateral salpingo-oophorectomy) Hx laparoscopic cholecystectomy S/P ABEBE (total abdominal hysterectomy) History of knee replacement Left and revision ~2004 Right - early 1999s Colonoscopy - MAC (06/29/17) Hx of bariatric surgery (~1998) States injury to spleen required drain Family History Grandfather Colon cancer Social History Smoking/Tobacco Use Status: Never Smoking risk assessment performed?: Yes 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 Exam Const General: cooperative and no acute distress HENMT Mouth: moist mucous membranes Throat: posterior oropharynx normal Eyes Conjunctivae: normal conjunctivae Sclera: normal sclerae Neck Neck: trachea midline Resp Auscultation: clear to auscultation bilaterally, no rales, no rhonchi and no wheezes Cardio Rate: regular rate and not tachycardic Rhythm: regular rhythm Neuro General: patient alert, patient awake and tone normal Course Vital Signs Vital signs: Vital Signs Temperature 36.9 C 04/23/23 09:19 Pulse 71 04/23/23 09:19 Respiratory Rate 18 04/23/23 09:19 Blood Pressure 197/142 H 04/23/23 09:19 Pulse Oximetry 97 04/23/23 09:19 Temperature 36.9 C 04/23/23 09:19 Temperature Source Skin 04/23/23 09:19 Pulse 71 04/23/23 09:19 Respiratory Rate 18 04/23/23 09:19 Respiratory Effort Normal 04/23/23 09:25 Respiratory Depth Normal 04/23/23 09:25 Blood Pressure 197/142 H 04/23/23 09:19 Blood Pressure Position Sitting 04/23/23 09:19 Pulse Oximetry 97 04/23/23 09:19 Oxygen Delivery Method Room Air 04/23/23 09:19 Oxygen Flow Rate 0 04/23/23 09:19 Pain Level 7 04/23/23 09:19
[2023-04-23 10:48] VITALS: BP 192/104; PULSE 68; RESP 18; O2SAT 95
== END 2023-04-23 11:03 | disposition home or self-care (01) ==
PROVIDERS: Emergency Provider Student in an Organized Health Care Education/Training Program; PCP Family Medicine
DX: U07.1 COVID-19 (principal); Z11.52 Encounter for screening for COVID-19; R03.0 Elevated blood-pressure reading, without diagnosis of hypertension; R05.9 Cough, unspecified; J02.9 Acute pharyngitis, unspecified
CPT/HCPCS: 87426; 87637; 99284; 99283

== ENCOUNTER 2023-05-17 12:19 | Emergency (ER) | payer MEDICAID, SELFPAY ==
[2023-05-17 12:28] VITALS: BP 156/118; PULSE 92; RESP 18; TEMP 36.2; O2SAT 96
--- NOTE | 2023-05-17 14:25 | DI.RAD_ITS ---
Exam(s) XR CHEST 2V PA LATERAL EXAM: XR CHEST 2V PA LATERAL CLINICAL HISTORY: cough, fever TECHNIQUE: 2D digital imaging was performed of the chest. Two images were obtained. PA and lateral views were obtained. COMPARISON: CR XR CHEST 2V PA LATERAL from 04/23/[address] CHEST WO from 03/25/2023 FINDINGS: MEDIASTINUM: Normal. HEART: Normal. PULMONARY VASCULATURE: Normal. There is tortuosity of the thoracic aorta. LUNGS: There is scarring seen in the left mid lung. This is unchanged. No focal consolidating infil trates are seen. PLEURAL SPACE: No pleural effusion or pneumothorax. BONE:Within normal limits for the patient's age. OTHER FINDINGS:There is unchanged elevation of the left hemidiaphragm. IMPRESSION: No acute pulmonary findings. DATA REPOSITORY: RADIATION DOSE DELIVERED:
--- NOTE | 2023-05-17 14:35 | ED.GENADUL_ITS ---
HPI General Stated Complaint: RespSymp GEO: 3 Date/Time Provider Initiated Documentation: 05/17/23 13:42. HPI Narrative: MDM This is an overall very well-appearing normothermic and not tachycardic 58-year-old female with sick contacts found to be influenza A positive. Given nausea I did not want to risk side effects of oseltamivir so we will defer this treatment at this point in time. Patient reports she does not have to go to work tomorrow. I advised her to quarantine at home until her symptoms resolved. Her granddaughter also tested positive. Her is wearing a mask. I sent her home with several ondansetron tablets to use as needed for nausea. Good range of motion in the neck so my suspicion is low for retropharyngeal abscess. She does not appear clinically dehydrated so no indication for IV placement. No pain at proportion to suggest necrotizing soft tissue infection. No hypoxia nor abnormal breath sounds to suggest pneumonia. Headache was not sudden onset so I doubt subarachnoid hemorrhage. Patient has not been around the generator so doubt carbon oxide toxicity. No recent chiropractic manipulation to suggest cervical arterial dissection. Patient does have an elevated BMI but based on her age and her URI symptoms my suspicion for idiopathic intracranial hypertension is low. She is not to suggest preeclampsia. She is not on hormone therapy to suggest increased risk for cerebral venous sinus thrombosis. She has not been vomiting to suggest subdural empyema. She takes care of the elderly. No nuchal rigidity to suggest meningitis. I advised patient to return to the ED if she could not eat or drink as result of nausea or vomiting. She understood her return indications and was discharged with an empiric trial of expectant outpatient management. Chronic conditions affecting the care of the patient: Multiple prior COVID infections History obtained from an outside historian: Patient's External record review: N/A [Diagnostic interpretations performed by me: Per my independent interpretation chest x-ray shows: No acute cardiopulmonary process ]Medications: Acetaminophen ibuprofen ondansetron Social determinants of health affecting disposition: N/A Management discussed with: N/A Treatment/interventions considered: N/A Response to therapies provided: N/A HPI This is a 66-year-old female arrived to the emergency department via private vehicle in setting of a cough and sore throat for the past 2 days. Patient reports that she has also been having some chills and had gradual onset right- sided headache. She took some Tylenol several days ago. She has been nauseous but not been vomiting. She has had occasional shortness of breath on lying down. She denies routine tobacco, ethanol, and illicits. She takes care of the elderly. She denies dysuria and frequency. She has been able to tolerate liquids but has been eating less recently. She denies chest pain. She has not taken any acetaminophen today. No dysuria nor frequency. No recent falls. Exam General: Well-appearing in no acute distress speaking in complete sentences. Head: Normocephalic, atraumatic. Eye: Extraocular eye movements intact. No conjunctival injection. No scleral icterus. Ear, nose, mouth, throat: Grossly normal inspection. Normal voice, handling secretions normally. Neck: Trachea midline. Cardiovascular: Well-perfused distal extremities. Regular rate and rhythm. Respiratory: Nonlabored respiration. Clear lungs bilaterally. Gastrointestinal: Nondistended abdomen. Musculoskeletal: No edema. Moving all 4 extremities spontaneously. Skin: Normal for age and race, grossly normal temperature and turgor. No acute rash. Neurologic: Alert and appropriate, no apparent acute deficits. Psychiatric: Mood and manner are appropriate. Grooming and personal hygiene are appropriate. Related Data Home Medications Medication Instructions Recorded Confirmed hydrochlorothiazide 25 mg tablet 25 mg PO DAILY 12/20/12 04/23/23 lisinopril 20 mg tablet 40 mg PO DAILY 02/17/13 04/23/23 sumatriptan succinate 25 mg tablet 25 mg PO PRN 02/17/13 04/23/23 (Imitrex) multivitamin 1 ea PO DAILY 06/05/17 04/23/23 amitriptyline 25 mg tablet 25 mg PO QHS 09/17/18 04/23/23 chlorthalidone 25 mg tablet 25 mg PO DAILY 09/17/18 04/23/23 cyanocobalamin (vitamin B-12) 1,000 mcg IM QMONTH 09/17/18 04/23/23 1,000 mcg/mL injection kit cyclobenzaprine 10 mg tablet 10 mg PO HS 09/17/18 04/23/23 amlodipine 10 mg tablet 10 mg PO DAILY 09/18/18 04/23/23 cetirizine 10 mg capsule (Zyrtec) 10 mg PO DAILY PRN 05/08/19 12/11/23 cholecalciferol (vitamin D3) 25 1,000 unit PO DAILY 09/18/18 04/23/23 mcg (1,000 unit) capsule citalopram 40 mg tablet 40 mg PO DAILY 09/18/18 04/23/23 omeprazole 20 mg capsule,delayed 20 mg PO DAILY #30 caps 08/14/19 04/23/23 release acetaminophen 500 mg tablet 1,000 mg (2 x 500 mg) PO Q8H PRN 09/16/19 04/23/23 pain #90 tabs pregabalin 150 mg capsule 150 mg PO BID #60 caps 11/07/19 04/23/23 metoprolol succinate 25 mg 25 mg PO DAILY 08/23/20 04/23/23 tablet,extended release 24 hr carvedilol 6.25 mg tablet 6.25 mg PO BID 11/21/22 04/23/23 dulaglutide 3 mg/0.5 mL 3 mg subcut QWEEK 11/21/22 04/23/23 subcutaneous pen injector spironolactone 50 mg tablet 50 mg PO DAILY 11/21/22 04/23/23 Previous Rx's Medication Instructions Recorded omeprazole 20 mg capsule,delayed 20 mg PO DAILY #30 caps 08/14/19 release acetaminophen 500 mg tablet 1,000 mg (2 x 500 mg) PO Q8H PRN 09/16/19 pain #90 tabs pregabalin 150 mg capsule 150 mg PO BID #60 caps 11/07/19 Allergies Allergy/AdvReac Type Severity Reaction Status Date / Time hydrocodone AdvReac Severe Itching Unverified 05/17/23 12:32 oxycodone [From Percocet] AdvReac Severe Itching Unverified 05/17/23 12:32 cortisone AdvReac Intermediate Itching Unverified 05/17/23 12:32 Paper Tape AdvReac Intermediate Itching Uncoded 05/17/23 12:32 steroid injections AdvReac Mild Itching Uncoded 05/17/23 12:32 PFSH All Active Problems (Updated 05/17/23 @ 15:03 by Golden Puga MD) Influenza A (Acute) Elevated blood pressure reading (Acute) COVID (Acute) Degenerative disc disease, lumbar (Acute) Sciatica (Acute) Trochanteric bursitis, left hip (Acute) Trochanteric bursitis, right hip (Acute) DEPO MEDROL 12/18/22 Glenoid fracture of shoulder (Acute 04/19/20) Right Lumbosacral disc herniation (Acute) Status post left hip replacement (Acute 09/16/19) Right upper quadrant pain (Acute) History of Surgical Procedure (Chronic) a. Laparoscopic cholecystectomy with intraoperative cholangiogram. 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 (09/16/19) Seborrheic dermatitis of scalp Depression, major, single episode, severe Vitamin B 12 deficiency Pernicious anemia Osteoarthritis of knees, bilateral Pruritus Fibromyalgia Migraine Vitamin D deficiency Arthritis of left shoulder region Restless legs DDD (degenerative disc disease), cervical Sacroiliac joint pain Peripheral neuropathy Fatigue Renal insufficiency Trigger finger, left ring finger Carpal tunnel syndrome, left Obesity HTN (hypertension) GERD (gastroesophageal reflux disease) Surgical History History of right knee joint replacement History of H/O shoulder surgery Left Hx of BSO (bilateral salpingo-oophorectomy) Hx laparoscopic cholecystectomy S/P ABEBE (total abdominal hysterectomy) History of knee replacement Left and revision ~2004 Right - early 1999s Colonoscopy - MAC (06/29/17) Hx of bariatric surgery (~1998) States injury to spleen required drain Family History Grandfather Colon cancer Social History Smoking/Tobacco Use Status: Never Smoking risk assessment performed?: Yes 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 Course Vital Signs Vital signs: Vital Signs Temperature 36.2 C L 05/17/23 12:28 Pulse 92 H 05/17/23 12:28 Respiratory Rate 18 05/17/23 12:28 Blood Pressure 156/118 H 05/17/23 12:28 Pulse Oximetry 96 05/17/23 12:28 Temperature 36.2 C L 01/04/24 12:28 Pulse 92 H 05/17/23 12:28 Respiratory Rate 18 05/17/23 12:28 Respiratory Effort Normal 05/17/23 12:31 Blood Pressure 156/118 H 05/17/23 12:28 Blood Pressure Position Sitting 05/17/23 12:28 Pulse Oximetry 96 05/17/23 12:28 Oxygen Delivery Method Room Air 05/17/23 12:28 Oxygen Flow Rate 0 05/17/23 12:28 Medical Decision Making Quality:SDOH Health Related Social Needs: Health related social needs risk of homeless, material hardship, food insecurity, transpo insecurity, personal safety Discharge Plan Disposition Patient Disposition: Home Discharge Details Clinical Impression: Influenza A Primary Care Provider: Golden Womack ED Provider: Golden Puga Home Meds and New Rx's Prescriptions: Continued amitriptyline 25 mg tablet 25 mg PO QHS cyanocobalamin (vitamin B-12) 1,000 mcg/mL kit 1,000 mcg IM QMONTH chlorthalidone 25 mg tablet 25 mg PO DAILY cyclobenzaprine 10 mg tablet 10 mg PO HS amlodipine 10 mg tablet 10 mg PO DAILY Zyrtec 10 mg capsule 10 mg PO DAILY PRN citalopram 40 mg tablet 40 mg PO DAILY cholecalciferol (vitamin D3) 1,000 unit capsule 1,000 unit PO DAILY metoprolol succinate 25 mg tablet extended release 24 hr 25 mg PO DAILY sumatriptan succinate [Imitrex] 25 MG tablet 25 mg PO PRN lisinopril 20 MG tablet 40 mg PO DAILY multivitamin 1 EACH tablet 1 ea PO DAILY omeprazole 20 mg capsule,delayed release(DR/EC) 20 mg PO DAILY Qty: 30 3RF pregabalin 150 mg capsule 150 mg PO BID Qty: 60 0RF spironolactone 50 mg tablet 50 mg PO DAILY dulaglutide 3 mg/0.5 mL pen injector 3 mg subcut QWEEK carvedilol 6.25 mg tablet 6.25 mg PO BID Rx Instructions: must administer with a meal/food hydrochlorothiazide 25 MG tablet 25 mg PO DAILY acetaminophen 500 mg tablet 1,000 mg PO Q8H PRN (Reason: pain) Qty: 90 3RF Discharge Instructions Additional Instructions: You were seen in the emergency department for your cough and sore throat. You are found to have the flu. Please take the following medications as needed. For your pain please take medications as follows: 1. Take acetaminophen (Tylenol), 1,000 mg (two 500 mg tabs) every 6 hours 2. Take ibuprofen (Advil), 400 mg every 6 hours. As we discussed, if you develop difficulty eating or drinking as result of nausea or vomiting please return to the emergency department. Please take this prescription as needed for any nausea. Discharge Data Discharge Date/Time-TO BE ENTERED AT DEPARTURE: 05/17/23 15:25
[2023-05-17 14:44] LABS: COVID-19 PCR Negative (Negative); Influenza A PCR Positive (Negative); Influenza B PCR Negative (Negative); RSV PCR Negative (Negative)
[2023-05-17 14:46] LABS: Source Nasopharynx
[2023-05-17] MEDS: Acetaminophen 500 MG TAB 1000 MG PO (15:15)
[2023-05-17] MEDS: Ibuprofen 600 MG TAB PO (15:15)
[2023-05-17] MEDS: Ondansetron O.D.T. 4 MG TABEF, 3 TABS/BTL PO (15:15)
[2023-05-17 15:23] VITALS: PULSE 92; RESP 16; O2SAT 96
== END 2023-05-17 15:25 | disposition home or self-care (01) ==
PROVIDERS: Physician Assistant; Emergency Provider Emergency Medicine; PCP Family Medicine
DX: J10.1 Influenza due to other identified influenza virus with other respiratory manifestations (principal); I10 Essential (primary) hypertension; Z11.52 Encounter for screening for COVID-19
CPT/HCPCS: 87637; 99283; 71046

== ENCOUNTER 2023-07-06 17:41 | Outpatient (REF) | payer MEDICAID, SELFPAY ==
[2023-07-06 18:50] LABS: Hemoglobin A1C 5.1 % (<5.7)
[2023-07-06 19:09] LABS: Anion Gap 9.6 mmol/L (3-11); BUN 15 mg/dL (7-18); CO2 27.4 mmol/L (21.0-32.0); CREATININE 0.9 mg/dL (0.55-1.02); Calculated LDL 77 mg/dL (<100); Chloride 105 mmol/L (98-107); Cholesterol 141 mg/dL (<200); Estimated GFR 73.19 (mL/min/1.73m2); Ferritin 20 ng/mL (8-252); Glucose 94 mg/dL (74-106); HDL Cholesterol 52 mg/dL (40-60); Sodium 142 mmol/L (136-145); Triglyceride 63 mg/dL (<150); Vitamin B12 122 pg/mL (193-986)
[2023-07-06 19:39] LABS: Iron 51 ug/dL (50-170); Total Iron Binding Capacity 457 ug/dL (250-450); Transferrin Sat 11 % (15-50)
== END 2023-07-06 17:42 | disposition home or self-care (01) ==
LOC: NCHCN 17:41
PROVIDERS: PCP Family Medicine; Visit Provider Family Medicine
DX: I10 Essential (primary) hypertension (principal); E61.1 Iron deficiency; E53.8 Deficiency of other specified B group vitamins; R79.89 Other specified abnormal findings of blood chemistry; Z13.6 Encounter for screening for cardiovascular disorders; Z13.1 Encounter for screening for diabetes mellitus
CPT/HCPCS: 80048; 80061; 82607; 82728; 83036; 83540; 83550

== ENCOUNTER 2024-09-03 18:37 | Emergency (ER) | payer BC, MEDICAID, SELFPAY ==
[2024-09-03 18:43] VITALS: BP 159/100; PULSE 71; RESP 20; TEMP 37.1; O2SAT 100
--- NOTE | 2024-09-03 18:45 | RT.EKG_ITS ---
APPROVED REPORT Exam: Resting ECG Reason for Exam: baseline/screning Patient Location: E HR:61 bpm ECG Measurements Heart Rate 61 AXIS NE 163 P 13 QRSd 93 QRS 3 QT 424 T 59 QTc 427 Conclusion Sinus rhythm...normal P axis, V-rate 60- 99 Sinus Rhythm. No change fron prior 03/25/23. WD
--- NOTE | 2024-09-03 18:51 | W.ED.GENAD ---
Discharge Plan Disposition Patient Disposition: Home Condition: Stable Discharge Details Clinical Impression: Hypertension Primary Care Provider: Golden Womack ED Provider: Patrick Maher Home Meds and New Rx's Prescriptions: Continued amitriptyline 25 mg tablet 25 mg PO QHS cyanocobalamin (vitamin B-12) 1,000 mcg/mL kit 1,000 mcg IM QMONTH chlorthalidone 25 mg tablet 25 mg PO DAILY cyclobenzaprine 10 mg tablet 10 mg PO HS amlodipine 10 mg tablet 10 mg PO DAILY Zyrtec 10 mg capsule 10 mg PO DAILY PRN citalopram 40 mg tablet 40 mg PO DAILY cholecalciferol (vitamin D3) 1,000 unit capsule 1,000 unit PO DAILY metoprolol succinate 25 mg tablet extended release 24 hr 25 mg PO DAILY sumatriptan succinate [Imitrex] 25 MG tablet 25 mg PO PRN lisinopril 20 MG tablet 40 mg PO DAILY multivitamin 1 EACH tablet 1 ea PO DAILY omeprazole 20 mg capsule,delayed release(DR/EC) 20 mg PO DAILY Qty: 30 3RF pregabalin 150 mg capsule 150 mg PO BID Qty: 60 0RF spironolactone 50 mg tablet 50 mg PO DAILY carvedilol 6.25 mg tablet 6.25 mg PO BID Rx Instructions: must administer with a meal/food hydrochlorothiazide 25 MG tablet 25 mg PO DAILY acetaminophen 500 mg tablet 1,000 mg PO Q8H PRN (Reason: pain) Qty: 90 3RF Discharge Instructions Instructions: High Blood Pressure ED Additional Instructions: You were seen in the emergency department for your elevated blood pressure readings at home, we did a thorough workup for hypertensive emergency and found no evidence of endorgan damage, I do not suspect your headache is related to your blood pressure and is likely a tension headache or migraine. CT of your head shows no intracranial bleeding, your cardiac enzymes are negative, EKG is normal, CTA of your aorta shows no ascending aortic aneurysm as is noted on your [place] chart but this was read by a radiologist service, our radiologist will officially read it tomorrow, I am unable to access the study which diagnosed your ascending aortic aneurysm but I did measure your aorta and it appears normal on the study done tonight. Please speak to your primary care provider about adjusting your medications for your blood pressure, it is up to them which medication dosage they would like to adjust, you are already maxed out on amlodipine. They could adjust your carvedilol dosing, or your spironolactone or metoprolol. Referrals: Golden Womack [Primary Care Provider] - Discharge Data Discharge Date/Time-TO BE ENTERED AT DEPARTURE: 09/03/24 22:09 HPI General Date/Time Provider Initiated Documentation: 09/03/24 18:50. HPI Narrative: 59 year-old female presents to ED today by POV/ambulating with a chief complaint of hypertension, systolic over 200 measured at home today- with known thoracic aortic aneurysm, on multiple anti-hypertensives, and has a headache and pain under both arms with onset today. Quality described as generalized headache, not the worst headache of her life, no radiation to fever, neck stiffness, chest pain, palpitations, flank pain, urinary retention, shortness of breath, visual changes/floaters. Severity is described as mild to moderate- mostly concerned with the numbers. Palliating factors include nothing specific attempted. Provoking factors include nothing specific. Patient has history of headaches, takes sumatriptan. Patient not anticoagulated. Related Data Home Medications ?Medication ?Instructions ?Recorded ?Confirmed hydrochlorothiazide 25 mg tablet 25 mg PO DAILY 12/20/12 09/03/24 lisinopril 20 mg tablet 40 mg PO DAILY 02/17/13 09/03/24 sumatriptan succinate 25 mg tablet 25 mg PO PRN 02/17/13 09/03/24 (Imitrex) multivitamin 1 ea PO DAILY 06/05/17 09/03/24 amitriptyline 25 mg tablet 25 mg PO QHS 09/17/18 09/03/24 chlorthalidone 25 mg tablet 25 mg PO DAILY 09/17/18 09/03/24 cyanocobalamin (vitamin B-12) 1,000 mcg IM QMONTH 09/17/18 09/03/24 1,000 mcg/mL injection kit cyclobenzaprine 10 mg tablet 10 mg PO HS 09/17/18 09/03/24 amlodipine 10 mg tablet 10 mg PO DAILY 09/18/18 09/03/24 cetirizine 10 mg capsule (Zyrtec) 10 mg PO DAILY PRN 09/18/18 09/03/24 cholecalciferol (vitamin D3) 25 1,000 unit PO DAILY 09/18/18 09/03/24 mcg (1,000 unit) capsule citalopram 40 mg tablet 40 mg PO DAILY 09/18/18 09/03/24 omeprazole 20 mg capsule,delayed 20 mg PO DAILY #30 caps 08/14/19 09/03/24 release acetaminophen 500 mg tablet 1,000 mg (2 x 500 mg) PO Q8H PRN 09/16/19 09/03/24 pain #90 tabs pregabalin 150 mg capsule 150 mg PO BID #60 caps 11/07/19 09/03/24 metoprolol succinate 25 mg 25 mg PO DAILY 08/23/20 09/03/24 tablet,extended release 24 hr carvedilol 6.25 mg tablet 6.25 mg PO BID 11/21/22 09/03/24 spironolactone 50 mg tablet 50 mg PO DAILY 11/21/22 09/03/24 Previous Rx's ?Medication ?Instructions ?Recorded omeprazole 20 mg capsule,delayed 20 mg PO DAILY #30 caps 08/14/19 release acetaminophen 500 mg tablet 1,000 mg (2 x 500 mg) PO Q8H PRN 09/16/19 pain #90 tabs pregabalin 150 mg capsule 150 mg PO BID #60 caps 11/07/19 Allergies Allergy/AdvReac Type Severity Reaction Status Date / Time hydrocodone AdvReac Severe Itching Unverified 09/03/24 18:46 oxycodone (From Percocet) AdvReac Severe Itching Unverified 09/03/24 18:46 cortisone AdvReac Intermediate Itching Unverified 09/03/24 18:46 Paper Tape AdvReac Intermediate Itching Uncoded 09/03/24 18:46 steroid injections AdvReac Mild Itching Uncoded 09/03/24 18:46 General Stated Complaint: Headache GEO: 3 Review of Systems All systems reviewed & are unremarkable except as noted in HPI and below Exam Narrative Exam Narrative: GENERAL APPEARANCE: Well-nourished, non-toxic, awake and alert, atraumatic, no acute distress. SKIN: Warm, pink, dry, intact, without rashes/lesions/ulcerations. HEAD: Normocephalic, atraumatic, normal hair distribution for gender/age. EYES: Normal conjunctiva, no exudates on lids/lashes. ENT: Nares patent, no circumoral cyanosis, no facial swelling NECK: Supple, trachea midline, painless cervical ROM. LUNGS/CHEST: Lungs CTA bilaterally- no rhonchi/rales/wheezes diffusely, non-labored respirations, normal A/P diameter, symmetrical expansion, no chest wall deformity HEART (CV/PV): Regular rate and rhythm without murmur, no peripheral edema, no JVD. ABDOMEN: Soft, non-distended, no guarding, no tenderness. MSK: Normal ROM, no swelling/deformity to bilateral UEs or LEs, moving all extremities without weakness, no cyanosis, spine midline without tenderness, normal curvature. NEURO: Mental Status AAOx4 - alert to person, place, time, events No facial droop, no forehead involvement. Motor: No focal weakness - strength 5/5 in bilateral UEs and LEs, proximal and distal, symmetric. Sensory: sensation intact to light touch globally. Gait normal: patient ambulated without ataxia into ED room. PSYCH: euthymic, cooperative, pleasant, appropriate speech Course Vital Signs Vital signs: Vital Signs Temperature 37.1 C 09/03/24 18:43 Pulse 71 09/03/24 18:43 Respiratory Rate 20 09/03/24 18:43 Blood Pressure 159/100 H 09/03/24 18:43 Pulse Oximetry 100 09/03/24 18:43 Temperature 37.1 C 09/03/24 18:43 Pulse 71 09/03/24 18:43 Respiratory Rate 20 09/03/24 18:43 Blood Pressure 159/100 H 09/03/24 18:43 Blood Pressure Position Sitting 09/03/24 18:43 Pulse Oximetry 100 09/03/24 18:43 Oxygen Delivery Method Room Air 09/03/24 18:43 Oxygen Flow Rate 0 09/03/24 18:43 Medical Decision Making This dictation utilizes [id number] dictation software and may contain unedited grammatical errors. 59 year-old female presents to ED today by POV/ambulating with a chief complaint of hypertension, systolic over 200 measured at home today- with known thoracic aortic aneurysm, on multiple anti-hypertensives, and has a headache and pain under both arms with onset today. Quality described as generalized headache, not the worst headache of her life, no radiation to fever, neck stiffness, chest pain, palpitations, flank pain, urinary retention, shortness of breath, visual changes/floaters. Severity is described as mild to moderate- mostly concerned with the numbers. Palliating factors include nothing specific attempted. Provoking factors include nothing specific. Patient has history of headaches, takes sumatriptan. Patients' medical history: Fibromyalgia, headache disorder, peripheral neuropathy, obesity, hypertension. Family and social history: Noncontributory. Pertinent exam findings / vital signs include Neuro intact, benign cardiopulmonary exam, benign abdomen, nontoxic and stable vitals, no severe hypertension on arrival. Differential / pathologies of concern include hypertensive urgency, migraine, anxiety, intracranial hemorrhage, SANDRA, thoracic aortic dissection. Diagnostic studies of: -CBC, CMP, troponin, BNP, TSH, UA, CT head without contrast, CT ABD/pelvis with contrast. - Labs as below showed no signs of endorgan damage from hypertensive emergency, troponin negative, BNP negative - CT shows no aneurysm counseled on following up with her PCP as our radiologist reads no thoracic aortic aneurysm, I measured diameter 3.8 which is normal - CT head shows no intracranial hemorrhage, EKG shows no signs of ischemia Interventions of: -Advise she follow-up with her PCP for increase in her hypertension medications. ED Course/Assessment/Plan: 59-year-old female presents with headache and systolic readings in the 200s at home but no severe hypertension on arrival, she has no symptoms of hypertensive emergency here in the department and no signs of endorgan damage, I did provide Tylenol and ibuprofen for her minor headache in the setting of history of migraine syndrome, counseled on following up with her PCP for medication adjustments, strict return criteria for any severe increase in headache, chest pain, urinary retention, flank pain, palpitations, floaters to vision. Findings not consistent with ICH, thoracic aortic dissection, endorgan damage, hypertensive emergency. Disposition of Hypertension. Patient verbalized understanding of the plan and return to ED criteria and engaged in shared decision making. Medical Records Medical records reviewed: Yes I reviewed the patient's medical records. Imaging Data Radiologic Study: Attestation: I personally reviewed and interpreted this imaging study as follows: Imaging: CT Scan Radiologist's impression: Exam: CT Head Without Contrast Exam date and time: 09/03/2024 8:24 PM Age: 59 years old Clinical indication: Pain; Headache not specified; Headache, systolic blood pressure >200 today TECHNIQUE: Imaging protocol: Computed tomography of the head without contrast. Radiation optimization: All CT scans at this facility use at least one of these dose optimization techniques: automated exposure control; mA and/or kV adjustment per patient size (includes targeted exams where dose is matched to clinical indication); or iterative reconstruction. COMPARISON: MR cervical spine wo 07/10/2018 3:04 PM FINDINGS: Brain: Normal. No hemorrhage. Unremarkable white matter. No mass effect. Cerebral ventricles: No ventriculomegaly. Paranasal sinuses: Visualized sinuses are unremarkable. No fluid levels. Mastoid air cells: Visualized mastoid air cells are well aerated. Pharynx: Cystic structure identified measuring 1.4 cm in the posterior oropharynx also seen on prior MRI examination dated 07/10/2018 and therefore likely benign. Bones: Unremarkable. No acute fracture. Soft tissues: Unremarkable. IMPRESSION: No acute intracranial abnormality noted. Dictated and Authenticated by: Pan Savage MD. Radiologic Study #2: Attestation: I personally reviewed and interpreted this imaging study as follows: Imaging: CT Scan Radiologist's impression: CTA Chest With Contrast CTA Abdomen and Pelvis With Contrast Exam date and time: 09/03/2024 8:28 PM Age: 59 years old Clinical indication: Systolic blood pressure 275 at home, known aortic aneuryam, L arm TECHNIQUE: Imaging protocol: Computed tomographic angiography of the chest with contrast. Exam focused on the arteries. Computed tomographic angiography of the abdomen and pelvis with contrast. Exam focused on the arteries. 3D rendering (Not supervised by radiologist): MIP and/or 3D reconstructed images were created by the technologist. Radiation optimization: All CT scans at this facility use at least one of these dose optimization techniques: automated exposure control; mA and/or kV adjustment per patient size (includes targeted exams where dose is matched to clinical indication); or iterative reconstruction. Contrast material: [id number]; Contrast volume: 100 ml; Contrast route: INTRAVENOUS (IV); COMPARISON: CT CHEST WO 03/25/2023 9:28 AM FINDINGS: VASCULATURE: Great vessels off aortic arch: Visualized portions of the great vessels are patent without significant stenosis. Pulmonary arteries: Normal. No pulmonary emboli. Aorta: No aortic aneurysm. No aortic dissection. Celiac trunk and mesenteric arteries: No occlusion or significant stenosis. Renal arteries: No occlusion or significant stenosis. Right iliac arteries: No occlusion or significant stenosis. Left iliac arteries: No occlusion or significant stenosis. Thyroid: No thyroid lesions. No thyroid enlargement. CHEST: Trachea: The central airways clear. Lungs: Linear bibasilar opacities most consistent with subsegmental atelectasis. Pleural spaces: Unremarkable. No pneumothorax. No pleural effusion. Heart: Unremarkable. No cardiomegaly. No pericardial effusion. ABDOMEN AND PELVIS: Liver: There is a diffuse decrease in hepatic parenchymal density, consistent with fatty infiltration. Scattered hepatic cysts are seen and other subcentimeter hypodensities which are too small to characterize. Gallbladder and biliary ducts: Post cholecystectomy. Pancreas: The pancreas is unremarkable. Spleen: No splenomegaly. No lesions. Adrenal glands: The adrenal glands are unremarkable. Kidneys and ureters: The kidneys are normal. Stomach and bowel: There has been a prior gastrectomy. No evidence of bowel obstruction. No pericolonic inflammatory stranding. Appendix: Appendix is not seen but there is no pericecal inflammatory change. Intraperitoneal space: Unremarkable. No free air. No significant fluid collection. Urinary bladder: No focal wall thickening of the urinary bladder. Reproductive: Unremarkable as visualized. Lymph nodes: Calcified mediastinal lymph nodes are compatible with granulomatous exposure. No axillary adenopathy. Bones/joints: Moderate multilevel degenerative changes thoracic spine. Left hip prosthesis noted. No evidence of malalignment. Soft tissues: Soft tissues are unremarkable as visualized. Large anterior abdominal wall fat containing ventral hernia IMPRESSION: No acute findings. Chronic noncritical findings as described above. No evidence of thoracic or abdominal aortic aneurysm. Dictated and Authenticated by: Shey Chen MD. Lab Data Lab results reviewed: Yes I reviewed the patient's lab results. Labs: Laboratory Tests Range/Units 09/03/24 09/03/24 19:20 21:22 WBC (4.4-10.8) 10^3/uL 4.20 L RBC (3.93-5.22) 10^6/uL 4.43 Hgb (11.2-15.7) g/dL 13.2 Hct (36.0-46.0) % 40.7 MCV (80-95) fL 92 MCH (27.0-33.0) pg 29.8 MCHC (32.0-36.0) % 32.4 RDW (11.7-14.6) % 12.9 Plt Count (130-400) 10^3/uL 285 MPV (8.0-11.0) fL 9.2 Immature Gran % % 0.2 Neutrophils % % 39.1 Lymphocytes % % 44.0 Monocytes % % 12.6 Eosinophils % % 3.1 Basophils % % 1.0 Nucleated RBC % (0.0-0.3) % 0.0 Absolute Neutrophils (1.2-6.7) 10^3/uL 1.64 Absolute Lymphocytes (1.2-3.4) 10^3/uL 1.85 Absolute Monocytes (0.1-0.8) 10^3/uL 0.53 Absolute Eosinophils (0.0-0.7) 10^3/uL 0.13 Absolute Basophils (0.0-0.2) 10^3/uL 0.04 Sodium (136-145) mmol/L 145 Potassium (3.5-5.1) mmol/L 3.7 Chloride (98-107) mmol/L 108 H Carbon Dioxide (21.0-32.0) mmol/L 28.6 Anion Gap (3-11) mmol/L 8.4 BUN (7-18) mg/dL 21 H Creatinine (0.55-1.02) mg/dL 0.9 Est GFR (CKD-EPI 2020) (mL/min/1.73m2) 72.73 Glucose (74-106) mg/dL 99 Calcium (8.5-10.1) mg/dL 8.8 Total Bilirubin (0.2-1.0) mg/dL 0.3 AST (15-37) U/L 14 L ALT (14-59) U/L 22 Alkaline Phosphatase (46-116) U/L 98 Troponin I (<or=51) ng/L 8 NT-Pro-B Natriuret Pep (<300) pg/mL 128 Total Protein (6.4-8.2) g/dL 6.8 Albumin (3.4-5.0) g/dL 3.5 TSH (0.36-3.74) uIU/mL 2.41 Urine Color (Yellow) Yellow Urine Clarity (Clear) Clear Urine pH (5-8) 5.5 Ur Specific [place] (1.005-1.025) 1.010 Urine Protein (Neg-Trace) mg/dL Negative Urine Ketones (Negative) mg/dL Negative Urine Blood (Negative) Trace-intact H Urine Nitrite (Negative) Negative Urine Bilirubin (Negative) Negative Urine Urobilinogen (Up to 0.2) mg/dL 0.2 Ur Leukocyte Esterase (Negative) Negative Urine RBC (0-2) HPF 3-5 H Urine WBC (0-5) HPF Negative Ur Epithelial Cells (Negative) HPF Few Urine Crystals (Negative) HPF Negative Urine Bacteria (Negative) HPF Few Urine Mucus (Negative) Negative Ur Culture Indicated? No Urine Glucose (Negative) mg/dL Negative Quality:SDOH Health Related Social Needs: No Data to Display PFSH All Active Problems (Updated 09/03/24 @ 21:45 by SHERON Benjamin) Hypertension (Chronic) COVID (Acute) Degenerative disc disease, lumbar (Acute) Sciatica (Acute) Trochanteric bursitis, left hip (Acute) Trochanteric bursitis, right hip (Acute) DEPO MEDROL 12/18/22 Glenoid fracture of shoulder (Acute 04/19/20) Right Lumbosacral disc herniation (Acute) Status post left hip replacement (Acute 09/16/19) Right upper quadrant pain (Acute) History of Surgical Procedure (Chronic) a. Laparoscopic cholecystectomy with intraoperative cholangiogram. 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 (09/16/19) Seborrheic dermatitis of scalp Depression, major, single episode, severe Vitamin B 12 deficiency Pernicious anemia Osteoarthritis of knees, bilateral Pruritus Fibromyalgia Migraine Vitamin D deficiency Arthritis of left shoulder region Restless legs DDD (degenerative disc disease), cervical Sacroiliac joint pain Peripheral neuropathy Fatigue Renal insufficiency Trigger finger, left ring finger Carpal tunnel syndrome, left Obesity HTN (hypertension) GERD (gastroesophageal reflux disease) Surgical History History of right knee joint replacement History of H/O shoulder surgery Left Hx of BSO (bilateral salpingo-oophorectomy) Hx laparoscopic cholecystectomy S/P ABEBE (total abdominal hysterectomy) History of knee replacement Left and revision ~2004 Right - early 1999s Colonoscopy - MAC (06/29/17) Hx of bariatric surgery (~1998) States injury to spleen required drain Family History Grandfather Colon cancer Social History Smoking/Tobacco Use Status: Never Smoking risk assessment performed?: Yes 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
[2024-09-03 19:23] VITALS: PULSE 89; RESP 21; TEMP 36.6; O2SAT 98
[2024-09-03 19:26] LABS: Abs Immature Grans 0.01 10^3/uL (0.0-0.06); Absolute Basophil Count 0.04 10^3/uL (0.0-0.2); Absolute Eosinophil Count 0.13 10^3/uL (0.0-0.7); Absolute Lymphocyte Count 1.85 10^3/uL (1.2-3.4); Absolute Monocyte Count 0.53 10^3/uL (0.1-0.8); Absolute Neutrophil Count 1.64 10^3/uL (1.2-6.7); Eosinophils % 3.1 %; HCT 40.7 % (36.0-46.0); HGB 13.2 g/dL (11.2-15.7); Immature Grans % 0.2 %; MCH 29.8 pg (27.0-33.0); MCHC 32.4 % (32.0-36.0); MCV 92 fL (80-95); MPV 9.2 fL (8.0-11.0); Monocytes % 12.6 %; Neutrophils % 39.1 %; Platelet Count 285 10^3/uL (130-400); RBC 4.43 10^6/uL (3.93-5.22); RDW 12.9 % (11.7-14.6); RDW-SD 43.3 fL
[2024-09-03 19:52] LABS: NT-proBNP 128 pg/mL (<300)
[2024-09-03 19:55] LABS: ALT 22 U/L (14-59); AST 14 U/L (15-37); Albumin 3.5 g/dL (3.4-5.0); Alkaline Phosphatase 98 U/L (46-116); Anion Gap 8.4 mmol/L (3-11); BUN 21 mg/dL (7-18); Bilirubin, Total 0.3 mg/dL (0.2-1.0); CO2 28.6 mmol/L (21.0-32.0); CREATININE 0.9 mg/dL (0.55-1.02); Calcium 8.8 mg/dL (8.5-10.1); Chloride 108 mmol/L (98-107); Estimated GFR 72.73 (mL/min/1.73m2); Glucose 99 mg/dL (74-106); Potassium 3.7 mmol/L (3.5-5.1); Sodium 145 mmol/L (136-145); TSH (W/Ref FT4) 2.41 uIU/mL (0.36-3.74); Total Protein 6.8 g/dL (6.4-8.2); Troponin I 8 ng/L (<or=51)
[2024-09-03] MEDS: Omnipaque 350 MG/ML 100 ML BTL IJ (20:26)
[2024-09-03] MEDS: Normal Saline - Diluent 50 ML VIAL IJ (20:29)
--- NOTE | 2024-09-03 20:45 | DI.CT_ITS ---
Exam(s) CT HEAD WO EXAM: CT HEAD WO CLINICAL HISTORY: Headache; SBP > 200 today. TECHNIQUE: Imaging Protocol: Axial computed tomography images with coronal and sagittal reformatted images were created and reviewed COMPARISON: CT HEAD AND CSPINE W/O CONTRAST from 12/20/2012 MR MRI - BRAIN WO CONTRAST from 04/26/2016 FINDINGS: Ventricles and Extra axial spaces: Normal in size and morphology for the patient's age. Hemorrhage: None. Cerebral parenchyma: There are areas of decreased attenuation in the white matter suggesting small ve ssel ischemic disease. Midline shift: None. Brainstem/Cerebellum: Normal. Calvarium: Normal. Visualized Paranasal sinuses/Mastoids: Clear. Soft Tissues: There is a 1.5 x 1.5 cm well-circumscribed cystic lesion in the midline in the posterio r nasopharyngeal soft tissues most consistent with a Tornwaldt cyst. IMPRESSION: 1. No acute intracranial process. 2. The preliminary [facility] report was reviewed. RADIATION DOSE DELIVERED: 857.4mGy.cm Total DLP DATA REPOSITORY: All CT scans at this facility are submitted to the National Radiology Data Registry (NRDR) Dose Index Registry (DIR) with the [employer] ([employer]). RADIATION OPTIMIZATION: All CT scans at this facility use at least one of these dose optimization te chniques: automated exposure control; mA and/or kV adjustment per patient size (includes targeted exa ms where dose is matched to clinical indication); or iterative reconstruction.
--- NOTE | 2024-09-03 20:46 | DI.CT_ITS ---
Exam(s) CT THORAX ABD/PEL CTA EXAM: CT THORAX ABD/PEL CTA CLINICAL HISTORY: known aortic aneurysm, SBP 275 at home, L arm pain. TECHNIQUE: Imaging Protocol: Axial CT angiography was performed with multi-slice acquisition and m ulti-planar and/or 3D reconstructions. Lung Computer Aided Detection (CAD) was utilized. CONTRAST MATERIAL: Intravenous: Omnipaque 350 contrast volume:100 mL Oral: No COMPARISON: CT HEAD AND CSPINE W/O CONTRAST from 12/20/[address] CHEST WO from 03/25/2023 FINDINGS: CHEST: Tracheobronchial tree: Patent where visualized. There is no evidence of bronchiectasis. Pulmonary parenchyma: No consolidation or dominant measurable mass. No architectural distortion. Pulmonary Arteries: No evidence of filling defect to suggest pulmonary emboli. Mediastinum and Nela: No dominant adenopathy or fluid collection. The esophagus is unremarkable. Visualized thyroid: Unremarkable. Pleura: No effusion or pneumothorax. Heart: The heart is not dilated. No coronary artery calcifications are seen. No pericardial effusion. Aorta: Thoracic aorta non-dilated. No evidence of dissection. Mild atherosclerotic calcification is p resent. Soft Tissues: Unremarkable. Bones: Within normal limits for the patient's age. ABDOMEN AND PELVIS: Abdomen: Celiac axis/mesenteric arteries: No evidence of occlusion or significant stenosis. Renal Arteries: No evidence of occlusion or significant stenosis. There is a single renal artery per fusing each kidney. Aorta: No evidence of occlusion or significant stenosis. No aneurysm or dissection. Pelvis: Iliac Arteries: No evidence of occlusion or significant stenosis. Common Femoral Arteries: No evidence of occlusion or significant stenosis. ABDOMEN: Liver: Normal density. There are simple cysts seen in the liver. No follow-up is recommended. No causey spicious hepatic masses are present. Portal, superior mesenteric and splenic veins: Unremarkable. Gallbladder and Biliary Tract: Status post cholecystectomy. No significant biliary ductal dilatation is present. Pancreas: Normal density, no abnormal calcifications or inflammatory process. Spleen: Normal. Adrenals: No masses seen. Kidneys: Normal size, contour and axis. No radiodense stones or obstructive uropathy. There are parap elvic cysts on the left. No follow-up is recommended. Bowel: There are postsurgical changes seen in the stomach. There is a small bowel anastomosis in the left upper quadrant of the abdomen. There is a dilated loop of small bowel in the left upper quadra nt. Normal caliber bowel loops are seen proximally and distally. This bowel loop is decreased in si ze compared to the prior examination. No bowel wall thickening is seen. There is no evidence of marika endicitis. Peritoneal Cavity: No ascites, collection or mesenteric inflammatory response. No free air. Lymph Nodes: Within normal limits. Bones: Within normal limits for the patient's age. The patient has a left total hip arthroplasty. T here is grade 1 anterolisthesis of L4 on L5. Soft Tissues: There are midline anterior abdominal wall hernias. PELVIS: Bladder: Symmetric distention, no gross wall thickening. Reproductive Organs: Unremarkable as visualized. Lymph Nodes: Within normal limits. Bones: Within normal limits for the patient's age. IMPRESSION: 1. No evidence of a thoracic aortic aneurysm, dissection or pulmonary embolus. 2. No acute pulmonary process. 3. No evidence of an abdominal aortic aneurysm or dissection. 4. No acute abdominal or pelvic process. 5. The preliminary [facility] report was reviewed. RADIATION DOSE DELIVERED: 1,750.48mGy.cm Total DLP DATA REPOSITORY: All CT scans at this facility are submitted to the National Radiology Data Registry (NRDR) Dose Index Registry (DIR) with the [employer] ([employer]). RADIATION OPTIMIZATION: All CT scans at this facility use at least one of these dose optimization te chniques: automated exposure control; mA and/or kV adjustment per patient size (includes targeted exa ms where dose is matched to clinical indication); or iterative reconstruction.
--- NOTE | 2024-09-03 21:15 | DI.[facility]_ITS ---
PROCEDURE INFORMATION: Exam: CT Head Without Contrast Exam date and time: 09/03/2024 8:24 PM Age: 59 years old Clinical indication: Pain; Headache not specified; Headache, systolic blood pressure >200 today TECHNIQUE: Imaging protocol: Computed tomography of the head without contrast. Radiation optimization: All CT scans at this facility use at least one of these dose optimization techniques: automated exposure control; mA and/or kV adjustment per patient size (includes targeted exams where dose is matched to clinical indication); or iterative reconstruction. COMPARISON: MR cervical spine wo 07/10/2018 3:04 PM FINDINGS: Brain: Normal. No hemorrhage. Unremarkable white matter. No mass effect. Cerebral ventricles: No ventriculomegaly. Paranasal sinuses: Visualized sinuses are unremarkable. No fluid levels. Mastoid air cells: Visualized mastoid air cells are well aerated. Pharynx: Cystic structure identified measuring 1.4 cm in the posterior oropharynx also seen on prior MRI examination dated 07/10/2018 and therefore likely benign. Bones: Unremarkable. No acute fracture. Soft tissues: Unremarkable. IMPRESSION: No acute intracranial abnormality noted. Dictated and Authenticated by: Pan Savage MD. Orderin Gunnar Nguyen MD
[2024-09-03 21:32] LABS: Bilirubin Negative (Negative); Blood Trace-intact (Negative); Clarity Clear (Clear); Glucose Negative (Negative); Ketones Negative (Negative); Leukocyte Esterase Negative (Negative); Nitrite Negative (Negative); Urobilinogen 0.2 mg/dL (Up to 0.2); pH 5.5 (5-8)
--- NOTE | 2024-09-03 21:37 | DI.[facility]_ITS ---
PROCEDURE INFORMATION: Exam: CTA Chest With Contrast CTA Abdomen and Pelvis With Contrast Exam date and time: 09/03/2024 8:28 PM Age: 59 years old Clinical indication: Systolic blood pressure 275 at home, known aortic aneuryam, L arm TECHNIQUE: Imaging protocol: Computed tomographic angiography of the chest with contrast. Exam focused on the arteries. Computed tomographic angiography of the abdomen and pelvis with contrast. Exam focused on the arteries. 3D rendering (Not supervised by radiologist): MIP and/or 3D reconstructed images were created by the technologist. Radiation optimization: All CT scans at this facility use at least one of these dose optimization techniques: automated exposure control; mA and/or kV adjustment per patient size (includes targeted exams where dose is matched to clinical indication); or iterative reconstruction. Contrast material: [id number]; Contrast volume: 100 ml; Contrast route: INTRAVENOUS (IV); COMPARISON: CT CHEST WO 03/25/2023 9:28 AM FINDINGS: VASCULATURE: Great vessels off aortic arch: Visualized portions of the great vessels are patent without significant stenosis. Pulmonary arteries: Normal. No pulmonary emboli. Aorta: No aortic aneurysm. No aortic dissection. Celiac trunk and mesenteric arteries: No occlusion or significant stenosis. Renal arteries: No occlusion or significant stenosis. Right iliac arteries: No occlusion or significant stenosis. Left iliac arteries: No occlusion or significant stenosis. Thyroid: No thyroid lesions. No thyroid enlargement. CHEST: Trachea: The central airways clear. Lungs: Linear bibasilar opacities most consistent with subsegmental atelectasis. Pleural spaces: Unremarkable. No pneumothorax. No pleural effusion. Heart: Unremarkable. No cardiomegaly. No pericardial effusion. ABDOMEN AND PELVIS: Liver: There is a diffuse decrease in hepatic parenchymal density, consistent with fatty infiltration. Scattered hepatic cysts are seen and other subcentimeter hypodensities which are too small to characterize. Gallbladder and biliary ducts: Post cholecystectomy. Pancreas: The pancreas is unremarkable. Spleen: No splenomegaly. No lesions. Adrenal glands: The adrenal glands are unremarkable. Kidneys and ureters: The kidneys are normal. Stomach and bowel: There has been a prior gastrectomy. No evidence of bowel obstruction. No pericolonic inflammatory stranding. Appendix: Appendix is not seen but there is no pericecal inflammatory change. Intraperitoneal space: Unremarkable. No free air. No significant fluid collection. Urinary bladder: No focal wall thickening of the urinary bladder. Reproductive: Unremarkable as visualized. Lymph nodes: Calcified mediastinal lymph nodes are compatible with granulomatous exposure. No axillary adenopathy. Bones/joints: Moderate multilevel degenerative changes thoracic spine. Left hip prosthesis noted. No evidence of malalignment. Soft tissues: Soft tissues are unremarkable as visualized. Large anterior abdominal wall fat containing ventral hernia IMPRESSION: No acute findings. Chronic noncritical findings as described above. No evidence of thoracic or abdominal aortic aneurysm. Dictated and Authenticated by: Shey Chen MD. Orderin Gunnar Nguyen MD
[2024-09-03 21:40] VITALS: BP 170/98; PULSE 55; RESP 18; O2SAT 99
[2024-09-03 21:41] LABS: WBC Negative HPF (0-5)
[2024-09-03 21:42] LABS: Bacteria Few HPF (Negative); C & S Indicated? No; Crystals Negative HPF (Negative); Epithelial Cells Few HPF (Negative); Mucus Negative (Negative)
[2024-09-03] MEDS: Acetaminophen 500 MG TAB 1000 MG PO (22:05)
[2024-09-03] MEDS: Ibuprofen 400 MG TAB PO (22:05)
[2024-09-03 22:06] VITALS: BP 150/103; PULSE 60; RESP 17; TEMP 36.9; O2SAT 98
== END 2024-09-03 22:09 | disposition home or self-care (01) ==
PROVIDERS: Emergency Provider Physician Assistant; PCP Family Medicine
DX: R51.9 Headache, unspecified (principal); I10 Essential (primary) hypertension; Z79.899 Other long term (current) drug therapy
CPT/HCPCS: 71275; 80053; 93005; 99285; 70450; 74174; 81003; 81015; 83880; 84443; 84484; 85025; 93010; 99284; J3490